=== PATIENT | female | born 1995 | race Hispanic/Latino ===

== ENCOUNTER 2016-10-29 07:48 | Inpatient (IN) | payer MEDICAID ==
[~2016-10-29] VITALS: Ht 154.9 cm; Wt 73.6 kg
[~2016-10-29 07:48] MED LIST: HYDR1TAB69 PO; MTF850T PO
[2016-10-29 07:51] VITALS: BP 103/71; PULSE 103; RESP 16; O2SAT 97
--- NOTE | 2016-10-29 08:09 | ED.REPORT ---
HPI-General Illness Date of Service Oct 29, 2016 ED Provider: Narinder Altamirano MD This is a 21-year-old female with history of diabetes who presents to the emergency department for vaginal pain. This is been going on for last week. Patient mentions she first started noticing burning with urination, frequency and urgency and a constant burning vaginal pain. She said that slowly progressively getting worse with pain radiating up into her pelvis and back. Her back pain she describes as an ache only 8 out of 10. She says lying still with her pain. Movement exacerbates her pain. She denies any previous symptoms. She did go to [facility] on 10/25/2016 for this and was given ciprofloxacin which she is supposed to finish tomorrow. She reports dysuria, urinary frequency and urgency which have not improved with ciprofloxacin. She denies any vaginal discharge or pain with sex. He denies any history of STDs. She reportedly is in a monogamous relationship. Last menstrual period was one week prior with 3 days of spotting. She denies any numbness, swelling or incontinence. Nursing Notes Stated Complaint: ABDOMINAL PAIN Chief Complaint: Female Abdominal Pain Nursing Notes Reviewed: Yes Allergies: Coded Allergies: Iodinated Contrast- Oral and IV Dye (Unverified Allergy, Mild, Rash, Itching,, 10/29/16) patient had itching in eyes and throat post contrast injection.given meds thru er. ll 10/29/ Scheduled Ciprofloxacin (Cipro) 500 Mg Tablet 500 MG PO BID x 7 days Metformin (Glucophage) 1,000 Mg Tablet 1,000 MG PO occasionally General Time Seen by MD: 07:59 Chief Complaint Other (vaginal pain) Hx Obtained From: Patient Past Medical History Past Medical History Type 1 diabetes, on insulin. . Past Surgical History Reports: , Cholecystectomy Family History Noncontributory Smoking History Never Smoker Social History Alcohol Use: Denies alcohol use Drug Use: Denies drug use Other Social History: Local resident Ambulatory Status Independent Review of Systems Full Review of Systems Constitutional: Reports: Chills, Denies: Fever Eyes: Denies: Blurred bilateral, Diplopia Ears / Nose / Throat: Denies: Sore throat Respiratory: Denies: Shortness of breath Cardiovascular: Denies: Chest pain GI: Reports: Nausea, Denies: Abdominal pain, Diarrhea, Vomiting Female: Reports: Dysuria, Pelvic pain, Urinary frequency, Urinary urgency, Denies: Incontinence, Vaginal discharge Musculoskeletal: Reports: Back pain Hematologic: Denies Bleeding Endocrine: Denies: Polyuria Skin: Denies Rash Allergy / Immune: Denies: Itching Neurologic: Denies: Numbness Psychiatric: Denies: Change mental status Complete sys rev & neg: except as marked. Physical Exam Vital Signs Vital Signs Date Time Temp Pulse Resp B/P Pulse Ox O2 Delivery O2 Flow Rate FiO2 10/29/16 15:21 37.4 84 16 99/67 98 Room Air 10/29/16 07:51 37.2 103 16 103/71 97 Initial VS: Reviewed General/Constitutional: Well-developed, Well-nourished Head / Eyes: Atraumatic, Normocephalic ENT: Mucous membranes moist, Conjunctiva normal Neck: Supple, Full range of motion Respiratory: Breath sounds normal, Clear to auscultation, No respiratory distress Cardiovascular: Regular rate & rhythm, Heart sounds normal, Intact distal pulses Abdomen / GI: Soft, Non-tender, No guarding, No rebound, No distention Extremities: Vascular intact, Neuro intact, No swelling Skin: Warm, Dry Neurologic: Alert, Oriented, Nonfocal Psychiatric: Mood/affect normal, Behavior normal, Normal thought content Tenderness/Guarding/Rebound: Positive: Tender RUQ... (Mild) Negative Shin's sign Back: Atraumatic, Inspection NL, No midline vertebral tend, No paraspinal tenderness Left sided CVA tenderness Female Genitourinary: Public Accountant present, External genitalia NL, No bleeding Attempted pelvic exam, external genitalia normal without any lesions. Upon speculum insertion, patient had significant tenderness and requested to stop insertion. Bimanual examination attempted with large golf ball sized lesion protruding from anterior vaginal wall, hard and unmovable. Was unable to assess for cervical motion tenderness. Interpretation & Diagnostics Abdominal Ultrasound FINDINGS: Liver: Liver is normal in size and increased in echogenicity. Gallbladder: Surgically absent. Biliary ducts: Intrahepatic bile ducts are non-dilated. Extrahepatic bile duct caliber measures 3 mm. Normal is 6-7 mm or less in diameter, or 10 mm or less post-cholecystectomy. Pancreas: Not well-seen. Spleen: Spleen is normal in size and homogeneous in echotexture. Kidneys: Right kidney measures 12.5 cm long; left kidney measures 12.8 cm long. No hydronephrosis. Aorta: Visualized aorta is normal in caliber at less than 3 cm. Iliacs: Proximal common iliac arteries are normal in caliber at less than 2.5 cm. IVC: Intrahepatic inferior vena cava is patent. Miscellaneous: No free abdominal fluid. IMPRESSION: 1. Surgical absence of the gallbladder. No biliary ductal dilatation. 2. Increased hepatic echogenicity compatible with steatosis. Dictated by: Thien Diehl M.D. on 10/29/2016 at 13:16 Lab Results Interpretation Result Diagram: 10/29/16 0940 10/29/16 0940 Test 10/29/16 08:00 10/29/16 09:40 Urine Color Yellow (YELLOW) Urine Appearance Hazy (CLEAR,HAZY) Urine pH 6.0 (5.0-8.0) Urine Specific [place] 1.045 (1.003-1.035) Urine Protein Negativemg/dL (NEG,TRACE) Urine Glucose (UA) 500mg/dL (NEGATIVE) Urine Ketones 80mg/dL (NEGATIVE) Urine Occult Blood Negative (NEGATIVE) Urine Nitrite Negative (NEGATIVE) Urine Bilirubin Negative (NEGATIVE) Urine Urobilinogen Normalmg/dL (NORMAL) Urine Leukocyte Esterase Moderate (NEGATIVE) Urine RBC 0-2/hpf (0-2) Urine WBC >50/hpf (0-5) Urine Epithelial Cells Few/hpf (NONE-MOD) Urine Crystals None seen (NONE SEEN) Urine Bacteria Few/hpf (NONE-FEW) Urine Hyaline Casts None/lpf (NONE) Urine Granular Casts None seen (NONE SEEN) Urine Waxy Casts None seen (NONE SEEN) Urine Red Blood Cell Casts None seen (NONE SEEN) Urine White Blood Cell Casts None seen (NONE SEEN) Urine Mucus None seen (None Seen) Urine Trichomonas None seen (NONE SEEN) Urine Yeast Moderate (NONE SEEN) Urinalysis Comment None Urine Culture Reflexed Indicated White Blood Count 14.0th/mm3 (3.8-10.1) Red Blood Count 4.79mil/mm3 (3.90-5.20) Hemoglobin 14.4g/dL (12.0-15.6) Hematocrit 41.0% (35.0-46.0) Mean Corpuscular Volume 85.6fL (81-100) Mean Corpuscular Hemoglobin 30.1pg (27.0-35.0) Mean Corpuscular Hemoglobin Concent 35.1% (32.0-37.0) Red Cell Distribution Width 11.5% (12.3-15.4) Platelet Count 244bil/L (150-400) Neutrophils (%) (Auto) 81.0% (40-74) Lymphocytes (%) (Auto) 12.8% (14-46) Monocytes (%) (Auto) 5.5% (4-12) Eosinophils (%) (Auto) 0.1% (0-5) Basophils (%) (Auto) 0.3% (0-3) Sodium Level 136mEq/L (134-144) Potassium Level 4.3mEq/L (3.5-5.2) Chloride Level 97mEq/L (97-108) Carbon Dioxide Level 23mmol/L (18-29) Blood Urea Nitrogen 10mg/dL (6-20) Creatinine 0.36mg/dL (0.57-1.00) Estimat Glomerular Filtration Rate 323mL/min (>59) Glucose Level 338mg/dL (60-99) Calcium Level 9.3mg/dL (8.5-10.1) Total Bilirubin 0.5mg/dL (0.0-1.2) Aspartate Amino Transf (AST/SGOT) 20U/L (0-50) Alanine Aminotransferase (ALT/SGPT) 28U/L (0-32) Alkaline Phosphatase 213U/L (25-150) Total Protein 8.1g/dL (6.4-8.4) Albumin 4.2g/dL (3.4-5.0) Lipase 31U/L (13-60) Hold Roper Top Tube Received (Received) CT Abd / Pelvis Interpretation IMPRESSION: 1. Thickwalled septated mass within the vagina was treated. Differential considerations include an abscess or infected Tanvi's duct cyst versus a necrotic neoplasm. Recommend correlation with clinical exam. 2. No evidence of metastatic disease in abdomen or pelvis. Dictated by: Thien Diehl M.D. on 10/29/2016 at 13:52 Interpretation / Wet Read by: Interpret - Radiologist US Focused non-OB Pelvis FINDINGS: Uterus: Uterus is normal in size at 8.3 x 3.2 x 4.2 cm. Endometrium measures 10 mm in combined thickness. There is a round hypoechoic vaginal mass in the region of the cervix measuring 4.8 x 4.5 x 4.7 cm with indistinct margins. There is internal vascularity on color Doppler interrogation. Ovaries: Right ovary measures 3.1 x 1.3 x 3.9 cm and the left ovary measures 2.7 x 2.1 x 1.3 cm. No adnexal masses. Other: No free pelvic fluid. IMPRESSION: 1. Hypoechoic solid vaginal mass in the region of the cervix. Finding is highly suspicious for neoplasm and correlation is recommended with direct visualization. If clinically indicated, further evaluation of the extent of involvement may be obtained with a pelvic MRI. Re-Eval/Medical Decision Med Decision/Clinical Course In summary, is a 21-year-old female with a PMHx notable for diabetes who presents to the ED for evaluation of vaginal pain radiating to pelvis and back associated with nausea over the past week. DDx broad and includes ectopic , ovarian torsion, ruptured ovarian cyst, PID, SBO, appendicitis, cholecystitis/biliary colic, pancreatitis, nephrolithiasis/renal colic, IBD, intraabdominal mass/abscess, gastroenteritis, diverticulitis, mesenteric ischemia, hernia. Upon arrival to the ED, patient hemodynamically stable, vitals grossly within normal limits. Initial workup and labs as per above, notable for WBC 14, glucose 338, alkaline phosphatase 213, UA with moderate leukocyte esterase and > 50 white blood cells, negative nitrite. Urine test negative. Patient had significant tenderness to speculum insertion and on bimanual exam, a golf ball sized mass was palpated along the anterior vaginal wall. Difficult to assess if it is urethral but it does not appear to be. Pelvic ultrasound shows 4.5 cm mass. JUDO INSTRUCTOR, Dr. Renae, consulted and evaluated the patient. Per her evaluation she feels that the mass may be more related to the urethra. She recommended pelvic CT for further workup and discussing with urology. CT abd/ pelvis demonstrates thickwalled septated mass within the vagina measuring approximately 4.4 x 4.2 x 4.9 cm with differential including abscess or infected tanvi duct cyst. After discussion with Dr. Renae, she still feels that this may be a urethral cause. She recommended consultation with urology to determine what their thought is on this. After discussion with Dr. Gastelum, he reviewed the CT scan of patient and did not feel there was any urethral involvement. He recommended following up with OBGYN. He also recommended doing a post-void residual to see if patient is able to empty. If > 300 mL, discuss with urology. Otherwise, he will see patient if not getting better from OBGYN recommendation in a few days. As we are uncertain whether or not this is an infectious process or necrotic neoplasm, plan is to admit with IV antibiotics. IV fluids, Zosyn and vancomycin given here in the ED. Patient will need an MRI for better characterization and consultation with JUDO INSTRUCTOR. Spoke with hospitalist who agreed to accept. All findings were discussed with patient and she is agreeable to the plan as stated, denies further questions. Consultation #1: Referral / Consult Name: Sujata Renae MD Consulted With: On-call physician (OBGYN) Note: Dr. Renae saw patient in the ER and recommended follow-up pelvic CT as she thought mass may be more urethral and not vaginal. After pelvic CT findings, she recommended admitting patient and following up with urology to see if it may be urethral. Consultation #2: Referral / Consult Name: Tuan Gastelum MD Consulted With: Urology Call Returned at: 15:20 Inserting Machine Operator: Referred to other consult Note: Dr. Gastelum reviewed the CT scan of patient and did not feel there was any urethral involvement. He recommended following up with OBGYN. He also recommended doing a post-void residual to see if patient is able to empty. If > 300 mL, discuss with urology. Otherwise, he will see patient if not getting better from OBGYN recommendation in a few days. Consultation #3: Referral / Consult Name: Sveta Gutierrez MD Consulted With: Hospitalist Inserting Machine Operator: Accepts admit Counseled Regarding: Diagnosis, Lab results, Need for admission Discharge & Departure Primary Impression: Vaginal mass Disposition: ADMITTED TO HOSPITAL Discharge Condition All VS Reviewed: Yes Condition: Stable Referrals: Etelvina Gordon MD (PCP) Attending Statement I saw and evaluated the patient in conjunction with the resident. I performed my own history and physical examination. I agree with the plan and findings as per above. copies to: Etelvina Gordon MD, William B MD Oct 29, 2016 08:09 Mohit Carpenter DO Oct 29, 2016 09:58
[2016-10-29 09:54] LABS: BASOPHILS % (AUTO) 0.3 % (0-3); EOSINOPHILS % (AUTO) 0.1 % (0-5); MONOCYTES % (AUTO) 5.5 % (4-12); Mean Corpuscular Hemoglobin 30.1 pg (27.0-35.0); Mean Corpuscular Volume 85.6 fL (81-100); Platelet Count 244 bil/L (150-400)
[2016-10-29] MEDS ORDERED: oxyCODONE-Acetamin 5-325 mg Tablet PO ONE (10:25)
[2016-10-29 10:32] LABS: APPEARANCE,URINE HAZY (CLEAR,HAZY); COLOR,URINE YELLOW (YELLOW)
[2016-10-29 10:33] LABS: OCCULT BLOOD,URINE NEGATIVE (NEGATIVE); UROBILINOGEN,URINE NORMAL (NORMAL); YEAST,URINE MODERATE (NONE SEEN)
--- NOTE | 2016-10-29 13:20 | DRSVH ---
PROCEDURE: US ABDOMEN ([id number]) INDICATIONS: RUQ PAIN TECHNIQUE: Real-time scanning was performed of the abdominal and retroperitoneal organs, with image documentatio n. COMPARISON: None. FINDINGS: Liver: Liver is normal in size and increased in echogenicity. Gallbladder: Surgically absent. Biliary ducts: Intrahepatic bile ducts are non-dilated. Extrahepatic bile duct caliber measures 3 m m. Normal is 6-7 mm or less in diameter, or 10 mm or less post-cholecystectomy. Pancreas: Not well-seen. Spleen: Spleen is normal in size and homogeneous in echotexture. Kidneys: Right kidney measures 12.5 cm long; left kidney measures 12.8 cm long. No hydronephrosis. Aorta: Visualized aorta is normal in caliber at less than 3 cm. Iliacs: Proximal common iliac arteries are normal in caliber at less than 2.5 cm. IVC: Intrahepatic inferior vena cava is patent. Miscellaneous: No free abdominal fluid. IMPRESSION: 1. Surgical absence of the gallbladder. No biliary ductal dilatation. 2. Increased hepatic echogenicity compatible with steatosis. Dictated by: Thien Diehl M.D. on 10/29/2016 at 13:16 Approved by: Thien Diehl M.D. on 10/29/2016 at 13:18
--- NOTE | 2016-10-29 13:39 | DRSVH ---
PROCEDURE: US PELVIC SONOGRAM INDICATIONS: vaginal and pelvic pain, vaginal mass, r/o TOA TECHNIQUE: Real-time transabdominal scanning was performed of the pelvic organs, with image documentation. COMPARISON: None. FINDINGS: Uterus: Uterus is normal in size at 8.3 x 3.2 x 4.2 cm. Endometrium measures 10 mm in combined thic kness. There is a round hypoechoic vaginal mass in the region of the cervix measuring 4.8 x 4.5 x 4. 7 cm with indistinct margins. There is internal vascularity on color Doppler interrogation. Ovaries: Right ovary measures 3.1 x 1.3 x 3.9 cm and the left ovary measures 2.7 x 2.1 x 1.3 cm. No adnexal masses. Other: No free pelvic fluid. IMPRESSION: 1. Hypoechoic solid vaginal mass in the region of the cervix. Finding is highly suspicious for neop lasm and correlation is recommended with direct visualization. If clinically indicated, further eval uation of the extent of involvement may be obtained with a pelvic MRI. Dictated by: Thien Diehl M.D. on 10/29/2016 at 13:35 Approved by: Thien Diehl M.D. on 10/29/2016 at 13:38
--- NOTE | 2016-10-29 14:02 | DRSVH ---
PROCEDURE: CT ABDOMEN AND PELVIS WITH CONTRAST ([id number]) INDICATIONS: 4.5 cm intravaginal mass TECHNIQUE: After the administration of oral and intravenous contrast, 5 mm thick sections acquired from the diap hragms to the symphysis. 5 mm thick coronal and sagittal reformats were performed. For radiation do se reduction, the following was used: automated exposure control, adjustment of mA and/or kV accordi ng to patient size. COMPARISON: None. FINDINGS: Image quality: Excellent. ABDOMEN: Lung bases: Lung bases are clear. Heart size is normal. Solid organs: There is mild fatty infiltration in the anterior left hepatic lobe. The spleen is norm al in size. Gallbladder is surgically absent. Biliary system is non-dilated. Pancreas enhances nor jackie. No adrenal nodules. Kidneys are normal in size and enhancement, without hydronephrosis. Peritoneum and bowel: Stomach, small bowel, and colon loops are normal in caliber and wall thickness . No free fluid or air. Nodes and vessels: No retroperitoneal or mesenteric adenopathy. Aorta and inferior vena cava are no rmal in caliber. Miscellaneous: No ventral hernias. PELVIS: Genitourinary: There is a thickwalled septated mass within the vagina measuring approximately 4.4 x 4.2 x 4.9 cm. There is enhancement of the wall and internal septations. No extra-vaginal extension. Bladder wall thickness is normal. Miscellaneous: No inguinal hernias or adenopathy. Bones: No suspicious bony lesions. No vertebral body compression fractures. IMPRESSION: 1. Thickwalled septated mass within the vagina was treated. Differential considerations include an abscess or infected Tanvi's duct cyst versus a necrotic neoplasm. Recommend correlation with clini kishore exam. 2. No evidence of metastatic disease in abdomen or pelvis. Dictated by: Thien Diehl M.D. on 10/29/2016 at 13:52 Approved by: Thien Diehl M.D. on 10/29/2016 at 14:01
[2016-10-29] MEDS ORDERED: Vancomycin Inj 1,000 MG in IV Premix 1 EACH IV ONE (15:00)
[2016-10-29] MEDS ORDERED: 0.9% Sodium Chloride 1,000 ML IV ONE (15:00)
[2016-10-29] MEDS ORDERED: Piperacillin-Tazo 3.375 Gm Inj 3.375 GM in Dextrose 5% Minibag Plus 50 ML IV ONE ×2 (15:00→17:35)
[2016-10-29 15:21] VITALS: BP 99/67; PULSE 84; RESP 16; O2SAT 98
[2016-10-29] MEDS ORDERED: CIPR-231 PO (15:59)
[2016-10-29] MEDS ORDERED: METF1000 PO (15:59)
[2016-10-29] MEDS ORDERED: Alum-Mag Hydrox-Simeth 30 mL Suspension PO PRN ×2 (16:00→17:10)
[2016-10-29] MEDS ORDERED: Ondansetron 2 mg/mL 2 mL Inj IVPUSH PRN ×2 (16:00→17:10)
[2016-10-29] MEDS ORDERED: Polyethylene Glycol (PEG) 17 Gm Powder PO PRN ×2 (16:00→17:10)
--- NOTE | 2016-10-29 16:05 | NUR ---
Admit Pt comes from ER with hansen in vaginal area. Worsens when sitting up. 2-3/10 when laying or standing. 8-10/10 when sitting or walking. IV Left AC patent. A&OX4, Denies CP, Nausea, SOB. at bedside. Care continues.
[2016-10-29 16:39] VITALS: BP 112/73; PULSE 92; RESP 18; O2SAT 97
[2016-10-29] MEDS: Vancomycin Dose per Pharmacist XX SCH (17:15)
[2016-10-29] MEDS ORDERED: Glucose 40% Oral Gel 15 Gm Tube PO PRN (17:15)
[2016-10-29] MEDS ORDERED: Dextrose 10% 250 ML IV PRN (17:20)
[2016-10-29] MEDS ORDERED: Vancomycin Inj 1,500 MG in 0.9% Sodium Chloride 500 ML IV ONE (17:25)
--- NOTE | 2016-10-29 17:29 | OUT PROG ---
[address] [address] PROGRESS NOTE PATIENT: SHRAVAN SANTIZO : 1995 MR#: [id number] ADMIT: 10/29/2016 JOB ID: [id number] DATE OF SERVICE: 10/29/2016 HISTORY OF PRESENT ILLNESS: This 21-year-old patient came to emergency department for abdominal pain. I was consulted to see this patient. She is 21 years old. She is 3, para 3 with 3 C-sections. For the last one month, she started to have discomfort with having sex. The pain started with beginning of penetration. For the last one week it is more painful. She also feels urinary frequency, dysuria, back pain. There is no hematuria. She had an ED visit four days ago and was diagnosed with urinary tract infection and antibiotics started. Symptoms did not improve after antibiotics. She came in today. She was examined by ED physician and noticed there was a vaginal cyst about 3-4 cm and an ultrasound that was performed by verbal report with geotechnical engineering technician, there was soft tissue about 3-4 cm and no final report available at this time. ALLERGIES: She has no known drug allergies. PAST MEDICAL HISTORY: She has history of diabetes type 2 on metformin 500, but her diabetes now is well controlled, per patient. Declined other medical problems. PAST SURGICAL HISTORY: She had a x3. She had gallbladder removed. OB HISTORY: As mentioned above, she has had three C-sections. The last one was 2014. It was done at [facility] because of complications of uncontrolled diabetes. GYNECOLOGIC HISTORY: She is having Nexplanon for control. She does not have regular menstrual periods. She has irregular spotting. She does not remember if she had any vaginal examination after her last delivery. She cannot recall her last Pap smear. SOCIAL HISTORY: She declined smoking, alcohol or drug usage. PHYSICAL EXAMINATION: Her temperature 37.2, her pulse is 103, respiratory rate 16, blood pressure 103/71 and her O2 sat 97. Abdomen is soft, nontender. No guarding. No rebound. Extremities nontender. No CVA tenderness bilaterally. Pelvic examination: Vulva: No abnormal findings. Vagina: With insertion of the speculum, the patient did feel very painful. There was about 2-3 cc of watery yellowish discharge noted. Culture was taken, and I could see the cervix but inserting more of the speculum caused a lot of pain. Speculum removed and a digital examination was done. There is a mass above her anterior vaginal wall. Her vaginal wall mucosa was smooth with no lesions. This mass about started from 1 cm above her introitus and it ended at about 1 cm to her cervix, but it is not related to the cervix. Bilaterally it is occupying about the whole width of her anterior vaginal wall. There is no clear border though. It is still soft but with tension, and was tender by pressing on it. When pressing on the anterior vaginal wall, the patient feels abdominal pain. There is no significant CMT. Posterior vaginal wall: No abnormal finding. Left or right side of vaginal wall: No abnormal findings. ASSESSMENT AND PLAN: A 21-year-old female, 3, para 3. Abdominal pain with superior to vaginal mass. At this time, I am not certain about the region but highly suspicious of coming from her lower urinary tract either bladder or urethral. I discussed with Dr. Hernandez in the ED, recommending a CT scan which may tell us the region from the cyst better. I will follow up the imaging, too. Based on her tender pain and also elevated white count, recommended also start her on broad coverage antibiotic, too.
[2016-10-29] MEDS: Insulin LISPRO 300 Unit/3 mL Inj SUBQ SCH ×2 (17:30→22:21)
--- NOTE | 2016-10-29 18:03 | HP ---
[address] [address] HISTORY AND PHYSICAL PATIENT: SHRAVAN SANTIZO : 1995 MR#: [id number] ADMIT: 10/29/2016 JOB ID: [id number] PRIMARY CARE PROVIDERS: Etelvina Gordon MD Patient admitted from ED, inpatient status [place] team. CHIEF COMPLAINT: Dysuria, frequency and vaginal pain. HISTORY OF PRESENT ILLNESS: This is a 21-year-old female who has been sick for a week. She describes dysuria and frequency. She has also had a discomfort there, and some discomfort in the vaginal area. She has had some chills, but no fever and the dysuria, frequency and pain has gotten progressively worse over the week. She has not had this before. She had a little vaginal spotting but not lakhwinder bleeding a couple of days ago that resolved after two or three days. That was a bit unusual and before her scheduled next menstruation. There has been no weight loss. The patient has noted a little bit of nausea, headache and cough but no other problems noted. REVIEW OF SYSTEMS: Complete review of systems obtained. All pertinent positive as per HPI above, rest of review of systems is negative. PAST MEDICAL HISTORY: 1. Type 2 diabetes. 2. Cholecystectomy. 3. . MEDICATIONS: Metformin 500 mg daily. ALLERGIES: Patient develops itching with the IODINATED CONTRAST for CT today. SOCIAL HISTORY: Lives with her . Does not smoke. Consumes no alcohol. No drug use. FAMILY HISTORY: Father of liver cancer at age 39. Mother has diabetes but no cancer. PHYSICAL EXAMINATION: Afebrile, pulse 84, respiratory rate 16, blood pressure 103/71, O2 sats 98% on room air. The patient does not appear overly uncomfortable. Skin is warm and dry. Eyes: PERRLA. EOMs intact. Mouth shows adequate hydration. Neck is supple. No JVD. Cardiac is regular. No murmur. Lungs: Clear to auscultation and percussion. Abdomen: Does have a little bit of suprapubic discomfort just to the left of midline, but otherwise her abdomen is soft, nonacute, benign. No mass is noted. Extremities showed no edema. Cranial nerves 2-12 are intact. No gross motor or sensory defects noted. ANALYSIS AND PLAN: 1. Vaginal mass, present on admission, active. CT ultrasounds indicate a vaginal mass. I have talked to Dr. Sujata Renae to coordinate admission. The differential would include infection versus a malignancy, versus abscess. I have personally spoken with our lockstitch collar setter, Dr. Renae, by phone. She has already seen the patient in the ED, done a complete FURNACE BRAZER exam and I do notice that chlamydia and gonorrhea cultures are pending. At this time, will start vancomycin and Zosyn. Will get two blood cultures with Procalcitonin prior. Will also get a lactate and ESR. We will put in for an MRI scan and will put in for a F[employer]NA[employer] BRAZER consult. They have also asked that Urology see the patient, so I have paged Dr. Gastelum and will request a urology consult at this time. Will also get a chest x-ray. 2. Urinary tract infection, present on admission, active. Patient's UA suggestive of a UTI and she has symptoms. The patient will be on Zosyn and Vanco. Will treat with that at this time and await the results of her cultures and sensitivities. 3. Type 2 diabetes, present on admission, active. Blood sugar is 338. The patient does not do home testing so does not know what her sugar is. At this time, will hold metformin and start the patient on correction insulin, and teach her how to use insulin as she may need this when she goes home short-term until we can get her on better diabetic management. Hemoglobin A1c ordered also. Patient is admitted under inpatient status with expected length of stay greater than two midnight due to severity of presenting symptoms, lack of risk of adverse advance and complexity of treatment.
[2016-10-29 18:23] VITALS: PULSE 107
--- NOTE | 2016-10-29 18:39 | NUR ---
Reaction to Zosyn Pt states that after the Zosyn was started her face began to itch and she now has welts. Face only at this time. Will page . Addendum: 10/29/16 at 1905 by RAFAEL REYNAGA RN Per give Benadryl and wait at least a half hr to ensure reaction stops.
[2016-10-29] MEDS ORDERED: diphenhydrAMINE 50 mg Capsule PO PRN (18:50)
[2016-10-29 20:00] VITALS: PULSE 104
--- NOTE | 2016-10-29 20:24 | PCM.PHAPRO ---
Progress Date of Service: Oct 29, 2016 Vancomycin Management per Pharmacy: Indication: Possible vaginal abscess vs mass Goal Trough: 10-15 mg/dL Age: 21 yo F Labs: WBC: 14 Procalcitonin: 0.03 ESR: 65 SrCr: 0.36 mg/dL Est CrCl: >120 mL/min Additional Abx: Rocephin/Flagyl Nephrotoxic Risk Factors: Diabetes, hemoglobin A1c pending Recommendation: Load: Vancomycin 1500 mg IV x 1 (~20 mg/kg) Maintenance: Vancomycin 1000 mg IV Q8h (~14 mg/k) Vanco Trough: Draw on 10/31 @ 1100 Pharmacy to continue to monitor and adjust dose as needed. Thank You, Melina Garcia, Pharm D. Melina Garcia Oct 29, 2016 20:24
[2016-10-29 21:21] VITALS: BP 111/72; PULSE 101; RESP 16; O2SAT 95
--- NOTE | 2016-10-29 21:35 | DRSVH ---
PROCEDURE: X-RAY CHEST ONE VIEW, PORTABLE ([id number]) INDICATIONS: cough TECHNIQUE: One view of the chest was acquired. COMPARISON: [facility], , CHEST 1VW (PORTABLE), 10/06/2013, 6:33. FINDINGS: Surgical changes and devices: None. Lungs and pleura: No pleural effusions or pneumothorax. Lungs are clear. Mediastinum: Mediastinal contours appear normal. Heart size is normal. Bones and chest wall: No suspicious bony lesions. Overlying soft tissues appear unremarkable. IMPRESSION: 1. No acute cardiopulmonary disease. Dictated by: Thien Diehl M.D. on 10/29/2016 at 21:32 Approved by: Thien Diehl M.D. on 10/29/2016 at 21:33
[2016-10-29] MEDS ORDERED: Piperacillin-Tazo 3.375 Gm Inj 3.375 GM in Dextrose 5% Minibag Plus 50 ML IV SCH (22:00)
[2016-10-29] MEDS: cefTRIAXone Inj 2,000 MG in Dextrose 5% Minibag Plus 50 ML IV SCH (22:05)
[2016-10-29] MEDS: metroNIDAZOLE Inj 500 MG in IV Premix 1 EACH IV SCH (23:16)
[2016-10-30 00:43] VITALS: BP 101/66; PULSE 60; RESP 16; O2SAT 98
[2016-10-30] MEDS: Vancomycin 1 Gm/200 mL NS Premix IV SCH ×2 (04:14→13:03)
--- NOTE | 2016-10-30 05:01 | NUR ---
Itching Patient stated that itching subsided. Rash is no longer visible. Patient states she only has pain with activity. Patient A&OX3. vitals stable. Patient resting quietly in bed. Care continues.
[2016-10-30 05:56] VITALS: BP 116/70; PULSE 96; RESP 18; O2SAT 98
[2016-10-30] MEDS: HYDROcodone-APAP 5-325 mg Tablet PO PRN ×2 (05:59→20:46)
[2016-10-30 06:43] LABS: BASOPHILS % (AUTO) 0.2 % (0-3); EOSINOPHILS % (AUTO) 0.3 % (0-5); MONOCYTES % (AUTO) 7.7 % (4-12); Mean Corpuscular Hemoglobin 30.2 pg (27.0-35.0); Mean Corpuscular Volume 87.1 fL (81-100); NEUTROPHILS % (AUTO) 75.6 % (40-74); Platelet Count 223 bil/L (150-400)
--- NOTE | 2016-10-30 08:10 | PCM.PNMED ---
Subjective Date of Service Oct 30, 2016 Subjective This 21-year-old patient came to emergency department for abdominal pain. I was consulted to see this patient. She is 21 years old. She is 3, para 3 with 3 C-sections. For the last one month, she started to have discomfort with having sex. The pain started with beginning of penetration. For the last one week it is more painful. She also feels urinary frequency, dysuria, back pain. There is no hematuria. She had an ED visit four days ago and was diagnosed with urinary tract infection and antibiotics started. Symptoms did not improve after antibiotics. US showed a vaginal wall mass, CT scan with IV contrast confirmed presence of mass without connect to bladder wall or cervix. Today patient stated that her pain is under control, but has breakthrough pain when pushing to urinate and sitting up from bed. She denies vaginal bleeding, fever, chills, nausea, vomiting. PAST MEDICAL HISTORY: She has history of diabetes type 2 on metformin 500, but her diabetes now is well controlled, per patient. Declined other medical problems. PAST SURGICAL HISTORY: She had a x3. She had gallbladder removed. OB HISTORY: As mentioned above, she has had three C-sections. The last one was 2014. It was done at [facility] because of complications of uncontrolled diabetes. GYNECOLOGIC HISTORY: She is having Nexplanon for control. She does not have regular menstrual periods. She has irregular spotting. She does not remember if she had any vaginal examination after her last delivery. She cannot recall her last Pap smear. SOCIAL HISTORY: She declined smoking, alcohol or drug usage. Exam Vital Signs Vital Sign - Last Date Time Temp Pulse Resp B/P Pulse Ox O2 Delivery O2 Flow Rate FiO2 10/30/16 05:56 37.6 96 18 116/70 98 Room Air Intake and Output 10/29/16 10/29/16 10/30/16 Cumulative From/Thru 15:00 23:00 07:00 10/29/16 07:51 - 10/30/16 06:28 Intake Total 1351 ml 1351 ml Output Total 700 ml 700 ml Balance 651 ml 651 ml Intake Oral 350 ml 350 ml IV Total 1001 ml 1001 ml Output Urine Total 700 ml 700 ml Exam Gen: alert and oriented x 3, NAD, ambulating indecently HEENT: PERRLA, EMOI, no lymphadenopathy Resp: CTLA b/l, normal/equal air movement Cardio: RRR, +S1, +s2, no M/G/R Abdomen: soft non tender, normal bowel sounds, no rebound tenderness Neuro: II-XII grossly intact Lab and Diagnostics Laboratory Tests Test 10/29/16 09:40 10/30/16 05:40 White Blood Count 14.0th/mm3 (3.8-10.1) 14.5th/mm3 (3.8-10.1) Red Blood Count 4.79mil/mm3 (3.90-5.20) 4.41mil/mm3 (3.90-5.20) Hemoglobin 14.4g/dL (12.0-15.6) 13.3g/dL (12.0-15.6) Hematocrit 41.0% (35.0-46.0) 38.4% (35.0-46.0) Mean Corpuscular Volume 85.6fL (81-100) 87.1fL (81-100) Mean Corpuscular Hemoglobin 30.1pg (27.0-35.0) 30.2pg (27.0-35.0) Mean Corpuscular Hemoglobin Concent 35.1% (32.0-37.0) 34.6% (32.0-37.0) Red Cell Distribution Width 11.5% (12.3-15.4) 11.5% (12.3-15.4) Platelet Count 244bil/L (150-400) 223bil/L (150-400) Neutrophils (%) (Auto) 81.0% (40-74) 75.6% (40-74) Lymphocytes (%) (Auto) 12.8% (14-46) 15.9% (14-46) Monocytes (%) (Auto) 5.5% (4-12) 7.7% (4-12) Eosinophils (%) (Auto) 0.1% (0-5) 0.3% (0-5) Basophils (%) (Auto) 0.3% (0-3) 0.2% (0-3) Erythrocyte Sedimentation Rate 65mm/hr (0-32) Sodium Level 136mEq/L (134-144) 136mEq/L (134-144) Potassium Level 4.3mEq/L (3.5-5.2) 4.2mEq/L (3.5-5.2) Chloride Level 97mEq/L (97-108) 99mEq/L (97-108) Carbon Dioxide Level 23mmol/L (18-29) 23mmol/L (18-29) Blood Urea Nitrogen 10mg/dL (6-20) 12mg/dL (6-20) Creatinine 0.36mg/dL (0.57-1.00) 0.37mg/dL (0.57-1.00) Estimat Glomerular Filtration Rate 323mL/min (>59) 313mL/min (>59) Glucose Level 338mg/dL (60-99) 267mg/dL (60-99) Lactic Acid Level 1.0mmol/L (0.4-2.0) Calcium Level 9.3mg/dL (8.5-10.1) 8.4mg/dL (8.5-10.1) Total Bilirubin 0.5mg/dL (0.0-1.2) Aspartate Amino Transf (AST/SGOT) 20U/L (0-50) Alanine Aminotransferase (ALT/SGPT) 28U/L (0-32) Alkaline Phosphatase 213U/L (25-150) Total Protein 8.1g/dL (6.4-8.4) Albumin 4.2g/dL (3.4-5.0) Lipase 31U/L (13-60) Procalcitonin 0.03ng/mL (0.00-0.08) Hold Roper Top Tube Received (Received) Microbiology 10/29/16 Blood Culture, Received Pending 10/29/16 Gram Stain, Resulted Pending 10/29/16 Genital Culture - Preliminary, Resulted LIGHT NORMAL EDMUND PRESENT 10/30/16 MRSA (PCR), Received Pending 10/29/16 Urine Culture - Preliminary, Resulted No growth to date Result Diagram: 10/30/16 0540 10/30/16 0540 Microbiology Urine culture negative growth to date X-Rays, CTs and MRIs Abdominal CT IMPRESSION: 1. Thickwalled septated mass within the vagina was treated. Differential considerations include an abscess or infected Tanvi's duct cyst versus a necrotic neoplasm. Recommend correlation with clinical exam. 2. No evidence of metastatic disease in abdomen or pelvis. Dictated by: Thien Diehl M.D. on 10/29/2016 at 13:52 Approved by: Thien Diehl M.D. on 10/29/2016 at 14:01 Pelvic U/S IMPRESSION: 1. Hypoechoic solid vaginal mass in the region of the cervix. Finding is highly suspicious for neoplasm and correlation is recommended with direct visualization. If clinically indicated, further evaluation of the extent of involvement may be obtained with a pelvic MRI. Dictated by: Thien Diehl M.D. on 10/29/2016 at 13:35 Approved by: Thien Diehl M.D. on 10/29/2016 at 13:38 Abdomen U/S IMPRESSION: 1. Surgical absence of the gallbladder. No biliary ductal dilatation. 2. Increased hepatic echogenicity compatible with steatosis. Dictated by: Thien Diehl M.D. on 10/29/2016 at 13:16 Approved by: Thien Diehl M.D. on 10/29/2016 at 13:18 Assessment & Plan ASSESSMENT Patient is a 21-year-old female, 3, para 3. Abdominal pain with superior to vaginal mass. Imaging is concerning for cystic lesion vs soft tissue neoplasm. At this time there is concern for origin of this soft tissue mass from the lower urinary tract. Agree with MRI to better define origin of mass If surgical intervention is warranted, consider referral to uro-nurse obgyn Recommend consult urology Addendum Review of MRI differential necrotic Tanvi's cyst, abscess, neoplasm with necrotic center. Given patient's age, pyuria, loculations seen on MRI more likley to be infective process rather than neoplasm. We will follow closely and see if there is clinical improvement with change in antibiotics to better cover anaerobes. If there is no clinical improvement, consider biopsy of lesion. We will follow closely. Thank you for allowing us to participate in this unfortunate young woman's care. Pain Evaluation: Adequate Pain Control VTE Mechanical Devices: Intermittant Pneumatic CD Resuscitation Status: CPR: Attempt Resuscitation Time spent 25 min Attending Statement The patient was seen and examined together with Dr. Oli Perez on 10/30/2016 and I agree with the history, exam and plan as outlined in the note above. OLI PEREZ DO Oct 30, 2016 08:10 Radha Ceballos DO Oct 30, 2016 21:54 Delma Brooks MD Nov 02, 2016 10:17
[2016-10-30] MEDS: Vancomycin Dose per Pharmacist XX SCH (08:30)
[2016-10-30 09:09] VITALS: PULSE 96
[2016-10-30] MEDS: Insulin LISPRO 300 Unit/3 mL Inj SUBQ SCH ×4 (10:04→22:30)
[2016-10-30] MEDS: metroNIDAZOLE Inj 500 MG in IV Premix 1 EACH IV SCH ×3 (10:04→22:15)
--- NOTE | 2016-10-30 10:51 | DRSVH ---
PROCEDURE: MRI PELVIS WITH AND WITHOUT CONTRAST ([id number]) INDICATIONS: Vaginal mass TECHNIQUE: Coronal HASTE, sagittal breath-hold T2 FSE; axial T1 FSE with and without fat saturation through the pelvis. Optional long- and short-axis uterine nonbreath-hold T2 FSE through the uterus. Sagittal or axial dynamic VIBE during administration of contrast. Post-contrast axial or coronal VIBE/2-D FLASH with fat saturation from the iliac crests to the symphysis. Optional diffusion weighted imaging and ADC may be performed. COMPARISON: Located Within [facility], US, US PELVIC, 10/29/2016, 11:10. Located Within [facility], CT, CT ABD PELVIS W CON, 10/29/2016, 13:06. FINDINGS: Image quality: Excellent. Uterus and vagina: Uterus is normal in size. Junctional zone is normal in thickness at 12 mm or les s. There is mild fluid distention of the endometrium with intrinsic T1 hyperintensity compatible wit h blood product. There is a thickwalled septated fluid collection or cystic mass redemonstrated within the vagina chauncey uring 3.9 x 4.8 cm in transverse dimension by 5.9 cm in craniocaudal dimension. There is enhancement of the gan and septations. There is no evidence of extravaginal extension. Adnexa: Both ovaries are normal in size, without suspicious cystic or solid lesions. There are smal l bilateral ovarian follicles noted. Urinary system: Bladder wall is normal in thickness. Distal ureters are non distended. Urethra raiza ears normal in morphology. Nodes and vessels: No pelvic or inguinal adenopathy by size criteria. Iliac vessels are normal in s ize. Bowel and peritoneum: No pathologic free pelvic fluid. Inferior colon and small bowel loops are nor mal in caliber. Soft tissues: No inguinal hernias. No findings of pelvic floor incompetence in the absence of provo cation. Bones: Marrow demonstrates normal overall signal. IMPRESSION: 1. Thickwalled septated cystic collection or mass redemonstrated within the vagina. The findings li grupo represents an abscess or infected Tanvi's duct cyst. The differential includes a cystic or ne crotic neoplasm. 2. No evidence of extravaginal extension or pelvic lymphadenopathy. 3. Mild fluid distention of the endometrium containing blood products likely related to patient's me nstrual cycle. Dictated by: Thien Diehl M.D. on 10/30/2016 at 10:38 Approved by: Thien Diehl M.D. on 10/30/2016 at 10:50
[2016-10-30 11:33] VITALS: BP 112/74; PULSE 92; RESP 16; O2SAT 98
--- NOTE | 2016-10-30 15:11 | CONS ---
[address] [address] CONSULTATION REPORT PATIENT: SHRAVAN SANTIZO : 1995 MR#: [id number] ADMIT: 10/29/2016 JOB ID: [id number] DATE OF SERVICE: 10/30/2016 INFECTIOUS DISEASE CONSULTATION: I thank Dr. Cristobal Gutierrez for this timely consult. REASON FOR CONSULTATION: Vaginal mass with pyuria in a young woman with known diabetes. HISTORY OF THE PRESENT ILLNESS: The patient is a 21-year-old woman who has had three sections over the past several years, the last one being a year and a half ago. She also has diabetes, which started off as just gestational diabetes and has now become a permanent problem, for which she is medically managed. The patient's relevant history begins when she developed urgency, frequency, dysuria, fevers, chills and dyspareunia. All of these symptoms are said to be new over the course of the past week and that she has no preceding history of any of these issues. Eventually, this led her to the emergency department yesterday, October 29, where she was admitted through the emergency department for this lower abdominal/vaginal or pelvic pain. The patient was initially evaluated by the ED doctors, as well as the hospitalist electronic prepress system operator and STEEL ROD BUSTER. The imaging today did show what appears to be a vaginal wall mass, which may be consistent with a Tanvi cyst or a possibly malignant mass. The has been started on broad-spectrum antibiotics including vancomycin, ceftriaxone and Flagyl, as she had earlier developed a possible reaction to Zosyn. At this point, the patient is relatively comfortable lying in bed, and awaiting additional details regarding her evaluation. The patient continues to have subjective fever and chills that are not documented in the computer. She is having no respiratory tract or GI symptomatology. She continues to experience suprapubic pain spontaneously and with palpation and also, continues with genitourinary symptoms. She also notes that she has a headache. PAST MEDICAL HISTORY: 1. Diabetes mellitus, apparently type 2. 2. History of cholecystitis, with cholecystectomy in the past. 3. Status post three sections. SOCIAL HISTORY: The patient was born in [facility] and moved to the [facility] at age [age]. She does not frequently travel back to [place] nor does she enjoy any imported cheeses or other foods from [place]. She is a nonsmoker, nondrinker. Lives at home with her and three kids in the [place] area. FAMILY HISTORY: Negative for tuberculosis in first and second-degree relatives. REVIEW OF SYSTEMS: Patient has some degree of headache. No acute visual change. No sore throat, cough, chest pain, shortness of breath, nausea, vomiting, or diarrhea. She does have dysuria, urgency and frequency as noted, as well as suprapubic pain and dyspareunia, all of which have been present for a week or so. No problems with the extremities. Remainder of the review of systems is negative. PHYSICAL EXAMINATION: Reveals an afebrile young woman in absolutely no distress. She has been afebrile since her admission here. Current temp 37.5, pulse 92, respiratory rate 16, blood pressure 112/74. She is saturating well on room air. Mental status is clear. Eyes without conjunctivitis. Oral cavity without thrush, pharyngitis, or hairy leukoplakia. Supple neck. Lungs clear. Cardiac tones: No murmur. Abdomen: Soft, nontender, except suprapubic tenderness, which is fairly pronounced as one approaches the symphysis pubis. No inguinal adenopathy is appreciated. No evidence of synovitis. No skin rash is noted. Patient is neurologically intact. She has a peripheral IV. I did not perform a pelvic exam, as numerous others have, and we are waiting additional input from SCOUT EXECUTIVE shortly, though we did review the notes from the gynecologic exam yesterday. LABORATORIES: Include white count consistently 14,000. Mild left shift is noted. Sed rate 65. Platelet count 223. Creatinine 0.37. Procalcitonin is negative, less than 0.05. Urinalysis had heavy pyuria, greater than 50 white cells, and the urine culture is pending. Serologic studies include pending gonorrhea and chlamydia studies. Blood cultures are negative but they are relatively new. The vaginal Gram stain shows a few polys and epithelial cells with many gram-negative rods which certainly could be entirely normal. MRSA PCR of the nares negative. IMAGING: Many imaging studies have been performed in the past 24 hours including pelvic ultrasound, abdominal ultrasound, abdominal CT and pelvic CT. The only normal study is the chest x-ray. The pelvic ultrasound shows a solid vaginal mass in the region of the cervix, suspicious for neoplasm according to the radiologist. An abdominal ultrasound shows no gallbladder and perhaps some fatty liver. Abdominal CT scan was done, shows a thick-walled, septated mass within the vagina. Could be an abscess, infected Tanvi cyst, or a neoplasm. Finally, a pelvic MRI was done which shows a thick-walled, septated cyst within the vagina. It could be an abscess, infected Tanvi cyst, or cancer. No evidence of adenopathy. IMPRESSION: This is an interesting case of a young woman who presents with considerable symptomatology that would be compatible with a straightforward urinary tract infection with her urgency, frequency, fever and chills. Urinalysis has heavy pyuria, and I think at least some part of what is going on here involves a urinary tract infection, likely a lower urinary tract infection. We are also left with the story with the symptom of dyspareunia and the imaging and examination which show a vaginal wall abnormality. I agree that the differential diagnosis here is primarily an infected Tanvi cyst versus malignancy and await additional information from the STEEL ROD BUSTER microsoft infrastructure consultant. Infected cyst would be expected to contain a mixture of aerobes and anaerobes, and I think ceftriaxone plus Flagyl she is receiving is adequate. Methicillin-resistant Staphylococcus aureus infection would be unlikely in this region, and we already have a negative methicillin-resistant Staphylococcus aureus screen. So, I think we could dispense with the vancomycin. RECOMMENDATIONS: 1. Will discontinue the vancomycin at this time. 2. Will proceed with ceftriaxone and Flagyl while we await the urine culture, as well as any additional information and/or cultures from STEEL ROD BUSTER. 3. Will continue to follow this case with you.
--- NOTE | 2016-10-30 15:26 | PCM.PNMED ---
Subjective Date of Service Oct 30, 2016 Subjective Still with pain and discomfort, maybe a little bit better. No fever, no new problems. I paged and reviewed this patient with the resident on CARD GRADER. They are considering some sort of possible biopsy. Exam Vital Signs Vital Sign - Last Date Time Temp Pulse Resp B/P Pulse Ox O2 Delivery O2 Flow Rate FiO2 10/30/16 11:33 37.5 92 16 112/74 98 Room Air Intake and Output 10/29/16 10/29/16 10/30/16 Cumulative From/Thru 15:00 23:00 07:00 10/29/16 07:51 - 10/30/16 06:28 Intake Total 1351 ml 1351 ml Output Total 700 ml 700 ml Balance 651 ml 651 ml Intake Oral 350 ml 350 ml IV Total 1001 ml 1001 ml Output Urine Total 700 ml 700 ml Exam Skin; warm and dry HENT; adequate hydration CV; reg possible 1/6 soft systolic murmur Resp; clear GI; soft non acute some tenderness hypogastric area, left midline a bit Lab and Diagnostics Result Diagram: 10/30/16 0540 10/30/16 0540 Microbiology Urine culture negative growth to date X-Rays, CTs and MRIs Abdominal CT IMPRESSION: 1. Thickwalled septated mass within the vagina was treated. Differential considerations include an abscess or infected Tanvi's duct cyst versus a necrotic neoplasm. Recommend correlation with clinical exam. 2. No evidence of metastatic disease in abdomen or pelvis. Dictated by: Thien Diehl M.D. on 10/29/2016 at 13:52 Approved by: Thien Diehl M.D. on 10/29/2016 at 14:01 Pelvic U/S IMPRESSION: 1. Hypoechoic solid vaginal mass in the region of the cervix. Finding is highly suspicious for neoplasm and correlation is recommended with direct visualization. If clinically indicated, further evaluation of the extent of involvement may be obtained with a pelvic MRI. Dictated by: Thien Diehl M.D. on 10/29/2016 at 13:35 Approved by: Thien Diehl M.D. on 10/29/2016 at 13:38 Abdomen U/S IMPRESSION: 1. Surgical absence of the gallbladder. No biliary ductal dilatation. 2. Increased hepatic echogenicity compatible with steatosis. Dictated by: Thien Diehl M.D. on 10/29/2016 at 13:16 Approved by: Thien Diehl M.D. on 10/29/2016 at 13:18 Assessment & Plan 1. Vaginal mass, present on admission, active. -differential, abscess, infected duct, cystic or necrotic neoplasm -MRI septated cystic collectio/mass within the vagina -cult many gram neg rods from vaginal culture -GC and clamydie cultures t/f -will continue with Flagyl/Ceftriaxone/vanco (day 2) consider ID consult if CARD GRADER thinks this is infections -possible biopsy -will follow with CARD GRADER -if CARD GRADER needs a Urology consult they will need to call and request, I asked urology (Dr. Gastelum) to consult and he declined, "not urologic, call me again if not better". 2. Urinary tract infection, present on admission, active. -c/o dysuria and frequency -antibiotics as above -culture negaive to date 3. Uncontrolled Type 2 diabetes, present on admission, active. -Blood sugar is 338 on admit -The patient does not do home testing so does not know what her sugar is. -holding patient's metformin -patient learning to use insulin -for today add lantus 10 HS, continue correction with med algorithm -close outpatient follow up VTE Mechanical Devices: Intermittant Pneumatic CD Sveta Gutierrez MD Oct 30, 2016 15:26
--- NOTE | 2016-10-30 17:03 | NUR ---
Social Work-initial assessment/multidisciplinary rounds: Data:See initial assessment. Pt is a 21 y/o female who was admitted on 10/29/16 for vaginal mass per H&P. Pt's insurance is self pay and PCP is Etelvina Gordon at [facility]. EMR Reviewed. Pt's readmission score is 2. SW met with pt and at bedside, SW role explained. Pt is alert and oriented x3. Pt resides at home with her and 3 children where she remains independent with ADLs. Pt drives and does not use any DME. Pt has no HH or SNF history. Pt has no skilled nursing care insurance or VA benefits. SW discussed DPOA/ advanced directive,pt declines any information. No concerns noted from RN or MD regarding pt's capacity for self care. [facility] referral has been made due to pt not having insurance. SW provided pt with [facility] care application as well. SW also provided pt with discharge planning checklist and encouraged pt to call with any questions, phone number provided on white board in room. Pt confirms her will provide transport home.ID MD continues to be involved in pt's case. No anticipated discharge needs. SW will continue to follow if needs arise. Assessment:Pt who is independent at baseline. Plan:Pt to discharge home when medically stable via POV. . No anticipated discharge needs. SW will continue to follow if needs arise. RONNIE Richmond Addendum: 10/30/16 at 1709 by FRANCY DASH SS Amended: Links added.
--- NOTE | 2016-10-30 17:54 | NUR ---
Pain Pain ranges from 2 while laying down at rest to 8-10 while ambulating to bathroom and voiding. Pt has declines pain medications most of day. Discussed more consistent pain medication such as Tylenol to help prevent such bad pain when ambulating and voiding. Pt states that she agrees and would like to receive her Tylenol as ordered to help prevent further pain. Care continues
[2016-10-30 20:45] VITALS: BP 113/71; PULSE 103; RESP 16; O2SAT 97
[2016-10-30] MEDS: cefTRIAXone Inj 2,000 MG in Dextrose 5% Minibag Plus 50 ML IV SCH (21:24)
[2016-10-31 01:10] VITALS: BP 99/64; PULSE 92; RESP 20; O2SAT 97
--- NOTE | 2016-10-31 01:11 | NUR ---
Pain Patient's pain has increased since the beginning of this shift. Taking Tylenol and 1 Percocet for pain. Patient's blood sugar remains high, 3 Units Lispro HS. Patient resting in bed. A&OX3. Vitals stable. Pain increases w/activity. Care continues.
[2016-10-31 05:30] VITALS: BP 99/63; PULSE 70; RESP 18; O2SAT 97
[2016-10-31] MEDS: metroNIDAZOLE Inj 500 MG in IV Premix 1 EACH IV SCH (08:13)
[2016-10-31] MEDS: Insulin LISPRO 300 Unit/3 mL Inj SUBQ SCH ×4 (08:13→23:30)
[2016-10-31 08:41] LABS: Mean Corpuscular Hemoglobin 30.1 pg (27.0-35.0); Mean Corpuscular Volume 85.9 fL (81-100)
--- NOTE | 2016-10-31 10:02 | PROG NOTE ---
[address] [address] PROGRESS NOTE PATIENT: SHRAVAN SANTIZO : 1995 MR#: [id number] ADMIT: 10/29/2016 JOB ID: [id number] DATE: 10/31/2016 REASON FOR FOLLOW UP: Vaginal mass with pyuria. INTERVAL HISTORY: Overnight, the patient reports no fevers, chills, or sweats. No cough. She still has some mild to moderate suprapubic pain. No nausea or vomiting. In speaking to the nurse, she reports that the PAINT BOOTH OPERATOR service was by today. They did a vaginal examination and compressed the vaginal wall mass and discovered that there was copious yellow material which then emerged from the urethra. This has led to the Urology consult which is currently pending. There is no note to reflect this and this is simply what we were told by the nurse. PHYSICAL EXAMINATION: Reveals an afebrile woman. Temp 36.2, pulse 70, respiratory rate 18, blood pressure 99/63. She is saturating well on room air. She is in no acute distress. Oral cavity negative. Lungs clear. Abdomen essentially benign, though there is tenderness in the suprapubic area as before. No skin rash. LABORATORIES: Include white count 11,000 today, down from 14 yesterday. Platelet count 221. Creatinine 0.37. Procalcitonin 0. Urinalysis, of course, had heavy pyuria, but the urine grew greater than three organisms including lactobacillus, coag-negative staph another unknown pathogens. Chlamydia and gonorrhea studies have come back negative. Blood cultures are negative. MRSA screen negative. IMAGING: We have no new imaging since the pelvic MRI we discussed in yesterday's consult. IMPRESSION: This is an unusual case of a woman who may have an infected Tanvi cyst, or perhaps a malignancy, though that seems less likely given the description of events this morning. One concern I would have is if compression of the vaginal mass causes urethral discharge, it would certainly raise a question about whether it could be a fistula or connection between these structures. RECOMMENDATIONS: 1. Will continue with ceftriaxone and Flagyl as broad-spectrum antibiotics for what could be an infected vaginal cyst and/or UTI. 2. We await additional input from PAINT BOOTH OPERATOR, as well as Urology consult.
[2016-10-31 10:07] VITALS: BP 104/68; PULSE 87; RESP 18; O2SAT 98
[2016-10-31] MEDS ORDERED: Vancomycin Serum Trough XX ONE (11:00)
[2016-10-31] MEDS: Insulin GLARgine 100 Unit/mL Syringe SUBQ SCH (12:22)
--- NOTE | 2016-10-31 13:27 | PROG NOTE ---
[address] [address] PROGRESS NOTE PATIENT: SHRAVAN SANTIZO : 1995 MR#: [id number] ADMIT: 10/29/2016 JOB ID: [id number] DATE: 10/31/2016 SUBJECTIVE: A 21-year-old female, 3, para three, history of three sections. Admitted for pelvic pain and finding of a mass between her vagina and her urethra and bladder. The patient was admitted for more further evaluation and also antibiotics were started two days ago with broad coverage. This morning I saw the patient at 7:50. The patient still feels pain in the pelvis and vaginal pain. She feels the pain is slightly better compared to two days ago when I saw her in the ED. PHYSICAL EXAMINATION: She has been afebrile; her temperature this morning 36.2. Pulse was 70, respiratory rate 18, blood pressure 99/63, O2 sat 97 at room air and her abdomen is soft, nontender, the same as my examination two days ago. Vulva: No abnormal finding. Her urethral opening slightly swollen. I discussed with the patient that I will try to do a digital vaginal examination and compare to my examination two days ago. The patient agreed for that. There was nurse in the room when I examined the patient. The feeling of the mass between her anterior vaginal wall and her urethra is bigger compared to two days ago, with higher tension. The patient feels very painful during examination. At the end of the examination I realized there was copious pus . Since this is a bedside examination, and is not a speculum examination, I could not be sure where the pus came from at this time. The vulvar area was cleaned with 4 x 4's and the patient was reexamined. With pushing on the mass there was clearly pus leaking out from her urethral opening. LABORATORY: Her H and H stable; today it is 13.2/37.7. White count has decreased compared to yesterday; it was 14.5 yesterday and this morning it is 11.5. Her neutrophil was not done today; it was 75.6 yesterday and was better compared to 81 the day before. Her chlamydia and gonorrhea are both negative. Her hemoglobin A1c 11.6, which was done two days ago. IMAGING: The patient has multiple imaging. The first one was an ultrasound which was done at the ED and a CT scan was done the same day and I recommended an MRI after admission. The MRI results report showed: 1. Thickened septated cystic collection or mass redemonstrated within the vagina. The findings likely represent an abscess or infected Tanvi's duct cyst. The differential includes a cystic or necrotic neoplasm. 2. No evidence of extravaginal extension of the pelvic lymphadenopathy. 3. Mild fluid distention of the endometrium containing blood products, likely related to the patient's menstrual cycle. I also revealed the imaging personally and correlated to my pelvic examination we still confirmed the mass between her vagina and her urethral area. There was no opening in her vagina. Again, this mass is smooth and is not related to the cervix. Compared to the examination two days ago, the mass is actually more closer to the vaginal opening, closer to the urethral opening. By reviewing the imaging I am more concerned about this mass which is more like an abscess and is around her urethra and may be related to the urethra. ASSESSMENT AND PLAN: A 21-year-old female, 3, para three, history of three sections, with pelvic pain and pelvic mass. Although the patient subjectively is feeling better and white count decreasing, on physical examination the mass is not decreasing and is slightly increased compared to a day ago. My concern at this time is that I could not exclude this mass is related to her urethra. If an incision and drainage (I and D) from her vaginal area, will increase the risk of forming a fistula which may not heal well with the infection. So at this time I have no plan to do any surgical management for this patient. I discussed with the internal medicine physician covering for this patient, Dr. Ceballos, this morning at 8:00. The plan is strongly recommended to get urology consult for this patient. If the patient is not improving, and after urology consult is still thinking it is not related to the urethra, this patient from my point of view will need referred down to [facility] for either urology care or gynecologic urologist care. REGINO
--- NOTE | 2016-10-31 15:59 | PCM.HPSURG ---
Subjective Date of Service: Oct 31, 2016 Referring Provider: Admitting Physician: Sveta Gutierrez MD Primary Care Physician: Etelvina Gordon MD Attending Physician: Sveta Gutierrez MD Chief Complaint Pain History of Present Illness Ms Lutz is a [address] findings consistent with pelvic abscess. She notes her problems began about a week ago, when she experienced pain deep within her pelvis. - Pain is worse with any movement like walking. Her pain is also severe with sitting. - Lying down, as she is presently, she has pain but not severe. She states her urine is clear. - She denies purulent urine, pneumaturia, or gross hematuria. - Ucx demonstrates MUG. She has had subjective fever before admission. Allergy Allergies: Coded Allergies: piperacillin (Verified Allergy, Severe, Itchy with welts on face , 10/29/16) tazobactam (Verified Allergy, Severe, Itchy with welts on face , 10/29/16) Iodinated Contrast- Oral and IV Dye (Unverified Allergy, Mild, Rash, Itching,, 10/29/16) patient had itching in eyes and throat post contrast injection.given meds thru er. ll 10/29/ Social History Hx Alcohol Use: No Hx Substance Use: No Hx Tobacco Use: No PMH HEENT History History of ENT Problems?: No Cardiovascular History History of Heart Problems?: No Cardiovascular History: Denies:: Congestive Heart Failure Hypertension Respiratory History of Respiratory Problem: No Respiratory History: Denies:: Tuberculosis Neurological History Hx Neurologic Problems?: No Gastrointestinal History HX of GI Problems?: No Female/Male History Reproductive History Female: Denies: Currently ? Endometriosis Pelvic Inflammatory DX Problems with Breasts? Musculoskeletal History Hx Musculoskeletal Problems?: No Psycho Social History Hx of Psycho/Social Problems?: No Other History Hx Any Other Health Problems?: Yes Other History: Positive for:: Hospitalization (c/s x 2) Diabetes: Yes (takes Metformin)Bedside Blood Glucose: 188 Social History Hx Alcohol Use: NoHx Substance Use: NoHx Tobacco Use: No Smoking Status: Never Smoker H&P Surgical Exam Exam General: Alert, Cooperative, No Acute Distress Abdomen: Benign, Soft, Other (Vaginal exam: she was extremely hesitant to allow me to examine her. She would not allow full vaginal exam, only visual examination. Her urethra is orthotopic and normal appearing. With Valsalva, she exhibited severe pain. The external genitalia appear normal, though she would not consent to further exam.) Extremities: Warm Neuro: Cranial Nerves 2-12 nl Catheters: None Assessment & Plan Assessment 21 F with pelvic pain and CT findings c/w abscess VTE Mechanical Devices: Intermittant Pneumatic CD Plan: I suspect she has a pelvic/vaginal abscess. I cannot examine her fully given her refusal. Based off imaging, this appears to be a gynecologic source, though Dr Renae notes there was purulence via urethra with exam. I recommend she have urgent drainage/decompression of this lesion, which could be transvaginal, even via simple incision, though the lesion is likely continuing to mature, and septations may make this difficult. I have discussed this with her primary team. Resuscitation Status: CPR: Attempt Resuscitation Anita Joyce MD Oct 31, 2016 15:59
[2016-10-31 16:18] VITALS: BP 91/64; PULSE 90; RESP 16; O2SAT 98
--- NOTE | 2016-10-31 19:36 | NUR ---
Fever/Activity Pt had elevated temp this PM and headache, Tylenol given and pt had relief. Pt was NPO for most of day for possible I&D, which didn't happen. Pt able to eat dinner. No N/V. Only having vaginal pain upon exam and with urination.
[2016-10-31] MEDS: cefTRIAXone Inj 2,000 MG in Dextrose 5% Minibag Plus 50 ML IV SCH (20:27)
[2016-10-31 20:58] VITALS: BP 109/69; PULSE 86; RESP 16; O2SAT 96
--- NOTE | 2016-10-31 22:01 | PCM.PNMED ---
Subjective Date of Service Oct 31, 2016 Subjective This is a 21F with a vaginal mass, currently on abx. She has a UTI with cx neg. Vaginal gramstain showed gram neg rods. Chlamydia, gonorrhea PCR pending. Urology does not feel this is urethral, CHEESE BLENDER feels there may be a fistula or communication between the vagina and urethra. Patient states that she is still experiencing pain, though it has been better than since admission time. She sees no need for a urine catheter at this time as she is able to urinate without much pain. She denies purulent discharge with urination. Denies overnight fever some chills. Says she wants to get this taken care of and go home Exam Vital Signs Vital Sign - Last Date Time Temp Pulse Resp B/P Pulse Ox O2 Delivery O2 Flow Rate FiO2 10/30/16 20:45 36.5 103 16 113/71 97 Room Air Intake and Output 10/29/16 10/29/16 10/30/16 Cumulative From/Thru 15:00 23:00 07:00 10/29/16 07:51 - 10/30/16 06:28 Intake Total 1351 ml 1351 ml Output Total 700 ml 700 ml Balance 651 ml 651 ml Intake Oral 350 ml 350 ml IV Total 1001 ml 1001 ml Output Urine Total 700 ml 700 ml Exam Vital signs temperature 36.2 pulse 70 respirations 18 blood pressure 90 minute or 63 pulse ox 97% on room air Skin; warm and dry HENT; adequate hydration CV; reg possible 1/6 soft systolic murmur Resp; clear no crackles or wheezes GI; soft, nontender Neuro: No focal deficits Psych: No agitation : External vagina is clean without purulent drainage, patient has some discomfort with examination, thus deferred internal examination IVs and Medications Medications Reviewed: Medications were reviewed in detail Lab and Diagnostics Laboratory Tests Test 10/31/16 08:35 10/31/16 10:15 White Blood Count 11.5th/mm3 (3.8-10.1) Red Blood Count 4.39mil/mm3 (3.90-5.20) Hemoglobin 13.2g/dL (12.0-15.6) Hematocrit 37.7% (35.0-46.0) Mean Corpuscular Volume 85.9fL (81-100) Mean Corpuscular Hemoglobin 30.1pg (27.0-35.0) Mean Corpuscular Hemoglobin Concent 35.0% (32.0-37.0) Red Cell Distribution Width 11.4% (12.3-15.4) Platelet Count 221bil/L (150-400) Sodium Level 137mEq/L (134-144) Potassium Level 4.4mEq/L (3.5-5.2) Chloride Level 99mEq/L (97-108) Carbon Dioxide Level 24mmol/L (18-29) Blood Urea Nitrogen 9mg/dL (6-20) Creatinine 0.37mg/dL (0.57-1.00) Estimat Glomerular Filtration Rate 313mL/min (>59) Glucose Level 273mg/dL (60-99) Calcium Level 8.4mg/dL (8.5-10.1) Vancomycin Level Trough 2.3mcg/mL Microbiology 10/29/16 Blood Culture - Preliminary, Resulted No growth at 2 days; culture examined... 10/29/16 Gram Stain - Final, Resulted 10/29/16 Genital Culture - Preliminary, Resulted 10/30/16 MRSA (PCR) - Final, Complete 10/29/16 Urine Culture - Final, Complete Mixed Urogenital Jesusita Result Diagram: 10/30/16 0540 10/30/16 0540 Microbiology Urine culture negative growth to date X-Rays, CTs and MRIs Abdominal CT IMPRESSION: 1. Thickwalled septated mass within the vagina was treated. Differential considerations include an abscess or infected Tanvi's duct cyst versus a necrotic neoplasm. Recommend correlation with clinical exam. 2. No evidence of metastatic disease in abdomen or pelvis. Dictated by: Thien Diehl M.D. on 10/29/2016 at 13:52 Approved by: Thien Diehl M.D. on 10/29/2016 at 14:01 Pelvic U/S IMPRESSION: 1. Hypoechoic solid vaginal mass in the region of the cervix. Finding is highly suspicious for neoplasm and correlation is recommended with direct visualization. If clinically indicated, further evaluation of the extent of involvement may be obtained with a pelvic MRI. Dictated by: Thien Diehl M.D. on 10/29/2016 at 13:35 Approved by: Thien Diehl M.D. on 10/29/2016 at 13:38 Abdomen U/S IMPRESSION: 1. Surgical absence of the gallbladder. No biliary ductal dilatation. 2. Increased hepatic echogenicity compatible with steatosis. Dictated by: Thien Diehl M.D. on 10/29/2016 at 13:16 Approved by: Thien Diehl M.D. on 10/29/2016 at 13:18 Assessment & Plan Vaginal mass, present on admission, active. -differential, abscess, infected duct, cystic or necrotic neoplasm -MRI septated cystic collection/mass within the vagina: "Thickwalled septated cystic collection or mass redemonstrated within the vagina. The findings likely represents an abscess or infected Tanvi's duct cyst. The differential includes a cystic or necrotic neoplasm." -cult grew many gram neg rods from vaginal culture -GC and clamydie cultures are negative -will continue with Flagyl/Ceftriaxone (day 2) consider ID consult if CHEESE BLENDER thinks this is infections, i.d. have discontinued the vancomycin -Improving leukocytosis -Per Dr. Mendoza's notes:"if CHEESE BLENDER needs a Urology consult they will need to call and request, I asked urology (Dr. Gastelum) to consult and he declined, "not urologic, call me again if not better". -Uptodate:"Cysts from Mllerian remnants, epidermal inclusions, or Tanvi's duct (wolffian remnant) usually form on the lateral or posterior vaginal gan [ 61,62]. A vaginal cyst may present in adolescence because of difficulty inserting a tampon or dyspareunia, but many are asymptomatic. Most can be treated by excision, although it may be safer to simply marsupialize deep cysts to avoid significant bleeding. -- I have discussed case extensively with this a.m. who seems to feel that it is too risky for her to to I&D the abscess as it may have a communication with the urethra. I have discussed this with DR. Shun rose from urology, who has reviewed the scans and seen the patient on 10/31. She feels that this is a gynecological problem that should be addressed by CHEESE BLENDER. She also advise that we discuss case with interventional radiology. I have contacted Dr. Mason over phone, who once again reviewed the images with me and recommended patient be taken to the OR by CHEESE BLENDER for incision and drainage. After discussing the case with Dr. Renae, in the evening once again, I have contacted [facility] regarding a possible transfer. Dr. Hendricks [employer] hospitalist has discussed the case with me, as well as Dr. Renae. Dr. Hendricks discussed case with uro goodwill representative Dr. Jose Manuel Warner, who felt that this could be watched with antibiotics. Dr. Hendricks al discussed case. with their CHEESE BLENDER/ONC. I got Dr. Hendricks in touch with Dr. Renae, as Dr. Renae strongly felt that the size of the mass has been increasing and it is not getting better. Dr. Hendricks is opent o possible transfer in the am if mass does not improve. Note that all images were pushed to Dr. Hendricks. From uptodate: "Anterior wall masses may be vaginal wall cysts, but urethral diverticula are more common at this location. Other disorders that should be considered are leiomyoma, ectopic ureter, and vaginal cancer [63]. In rare cases , a Tanvi's duct cyst may communicate with an ectopic ureter [64]. For this reason, imaging of the urinary tract is indicated prior to excision of a vaginal wall mass in a patient with congenital urinary tract anomalies or unexplained leakage of urine. (See "Urogenital tract fistulas in women".)" Urinary tract infection, present on admission, active. -c/o dysuria and frequency -antibiotics as above -culture negaive to date Type 2 diabetes, uncontrolled chronic, active. -Blood sugar is 338 on admit -holding patient's metformin -patient learning to use insulin -add lantus 10 daily, continue correction with med algorithm, will need more lantus --A1c 11.7 -close outpatient follow up VTE Mechanical Devices: Intermittant Pneumatic CD Pain Evaluation: Adequate Pain Control VTE Mechanical Devices: Intermittant Pneumatic CD Resuscitation Status: CPR: Attempt Resuscitation Time spent 25 min Radha Ceballos DO Oct 30, 2016 21:51
[2016-10-31] MEDS: HYDROcodone-APAP 5-325 mg Tablet PO PRN (23:30)
[2016-11-01] MEDS: diphenhydrAMINE 25 mg Capsule PO PRN (03:41)
[2016-11-01 04:00] VITALS: BP 104/65; PULSE 76; RESP 16; O2SAT 97
--- NOTE | 2016-11-01 04:08 | NUR ---
Pain/Activity Pt had c/o pain/cramping to vaginal area once this shift of 7 out of 10. Administered 1 tab PO [place] which pt states helped alleviate the cramping. Pt also had c/o itching to upper chest/neck area. This is ongoing and had previously yesterday. Pt requested PO Benadryl and appears to be resting comfortably in bed at this time. Pt ambulates to BR with SBA and tolerates very well, steady on feet. Remains afebrile this shift and has no c/o ongoing headache. I/O's remain above adequate at 0.45. Urology consult still pending for tomorrow.
[2016-11-01] MEDS: Insulin GLARgine 100 Unit/mL Syringe SUBQ SCH (09:19)
[2016-11-01] MEDS: Insulin LISPRO 300 Unit/3 mL Inj SUBQ SCH ×4 (09:20→21:50)
[2016-11-01 12:40] VITALS: BP 104/68; PULSE 80; RESP 16; O2SAT 97
[2016-11-01] MEDS ORDERED: Insulin GLARgine 100 Unit/mL Syringe SUBQ ONE (13:20)
--- NOTE | 2016-11-01 18:07 | PROG NOTE ---
[address] [address] PROGRESS NOTE PATIENT: SHRAVAN SANTIZO : 1995 MR#: [id number] ADMIT: 10/29/2016 JOB ID: [id number] DATE: 11/01/2016 INFECTIOUS DISEASE FOLLOWUP NOTE: REASON FOR FOLLOWUP: Posterior vaginal mass of unknown etiology. INTERVAL HISTORY: Both Urology and Gynecology have continued to evaluate this patient and there is some disagreement as to which if either of these specialties should perform invasive procedures to try and establish and/or treat this vaginal mass which may or may not connect to the urethra. Recall that during an exam however with palpation and squeezing of the vaginal mass yellow substance with seem to emerge from the urethra suggesting there is in fact some form of connection. The patient reports she is actually feeling better. No fevers, chills, sweats, cough, or overt GI symptoms. The very severe suprapubic pain which radiated to the back she had when she came in has largely improved. The patient is a bit frustrated by the slowness of her workup and states she plans to leave tomorrow unless there is a definitive plan to correct this problem. PHYSICAL EXAMINATION: Reveals an afebrile comfortable young woman. Temp 36.8, pulse 80, respiratory rate 16, blood pressure 104/68. She is saturating well on room air. She is in no acute distress. Oral cavity normal. Lungs clear. Abdomen now benign. The quite severe suprapubic tenderness she had on admission is gone at this point, and so overall I would think from a clinical point of view that she actually appears better. LABORATORY: Her white count has also normalized. It was 14,000 when she came in, now 9600. Creatinine 0.37. Procalcitonin zero. Chlamydia and gonorrhea PCR is negative. Blood cultures and MRSA screen negative. IMAGING: No new imaging has been done since the pelvic MRI two days ago. IMPRESSION: This patient likely has an abscess of the posterior vaginal wall and/or a malignancy. There may be some connection or fistulization with respect to the urethra. The appropriate management of this complex problem is best deferred to DOUGH MAKER and/or Urology, but I think in terms of antibiotic treatment she seems to be improving on ceftriaxone and Flagyl, which are aimed at possible untreated and undrained abscess. RECOMMENDATIONS: 1. Will continue with these antibiotics through tomorrow. 2. If the plan is to send the patient home tomorrow and then follow up in outpatient urogynecology clinic later, I think I would send her out on Augmentin or a combination of cefdinir and Flagyl as desired. 3. We will see this patient again tomorrow and hope for resolution of this problem. Thank you very much.
[2016-11-01 19:10] VITALS: BP 106/69; PULSE 85; RESP 16; O2SAT 96
[2016-11-01] MEDS: cefTRIAXone Inj 2,000 MG in Dextrose 5% Minibag Plus 50 ML IV SCH (20:03)
[2016-11-01] MEDS: HYDROcodone-APAP 5-325 mg Tablet PO PRN ×2 (20:12→21:38)
--- NOTE | 2016-11-01 21:39 | PCM.PNMED ---
Subjective Date of Service Nov 01, 2016 Subjective Patient is seen and examined. Rates pain as 4-10 today. She says that she is feeling slightly better, though the pain does come back with ambulation. I have reviewed the lab results, test results, and discussions with Dr. [facility] Ordoñez with the patient Exam Vital Signs Vital Sign - Last Date Time Temp Pulse Resp B/P Pulse Ox O2 Delivery O2 Flow Rate FiO2 11/01/16 12:40 36.8 80 16 104/68 97 Room Air Intake and Output 10/31/16 10/31/16 11/01/16 Cumulative From/Thru 15:00 23:00 07:00 10/29/16 07:51 - 11/01/16 05:31 Intake Total 920 ml 512 ml 786 ml 4967 ml Output Total 1350 ml 400 ml 800 ml 4450 ml Balance -430 ml 112 ml -14 ml 517 ml Intake Oral 920 ml 300 ml 640 ml 2970 ml IV Total 212 ml 146 ml 1997 ml Output Urine Total 1350 ml 400 ml 800 ml 4450 ml # Voids 3 3 # Bowel Movements 0 0 0 Exam Gen.: No acute distress laying in bed HEENT: Normocephalic, atraumatic Heart: Regular rate and rhythm, no S3-S4 sounds Lungs: no crackles or wheezes Abdomen soft, nontender nondistended, normal bowel sounds Psychiatric: Affect is neutral, mood is somewhat depressed Neurological: No focal deficits Skin: Warm dry IVs and Medications Medications Reviewed: Medications were reviewed in detail Lab and Diagnostics Result Diagram: 11/01/16 0455 10/31/16 0835 Microbiology Urine culture negative growth to date X-Rays, CTs and MRIs Abdominal CT IMPRESSION: 1. Thickwalled septated mass within the vagina was treated. Differential considerations include an abscess or infected Tanvi's duct cyst versus a necrotic neoplasm. Recommend correlation with clinical exam. 2. No evidence of metastatic disease in abdomen or pelvis. Dictated by: Thien Diehl M.D. on 10/29/2016 at 13:52 Approved by: Thien Diehl M.D. on 10/29/2016 at 14:01 Pelvic U/S IMPRESSION: 1. Hypoechoic solid vaginal mass in the region of the cervix. Finding is highly suspicious for neoplasm and correlation is recommended with direct visualization. If clinically indicated, further evaluation of the extent of involvement may be obtained with a pelvic MRI. Dictated by: Thien Diehl M.D. on 10/29/2016 at 13:35 Approved by: Thien Diehl M.D. on 10/29/2016 at 13:38 Abdomen U/S IMPRESSION: 1. Surgical absence of the gallbladder. No biliary ductal dilatation. 2. Increased hepatic echogenicity compatible with steatosis. Dictated by: Thien Diehl M.D. on 10/29/2016 at 13:16 Approved by: Thien Diehl M.D. on 10/29/2016 at 13:18 Assessment & Plan Vaginal mass, present on admission, active. -differential, abscess, infected duct, cystic or necrotic neoplasm -MRI septated cystic collection/mass within the vagina: "Thickwalled septated cystic collection or mass redemonstrated within the vagina. The findings likely represents an abscess or infected Tanvi's duct cyst. The differential includes a cystic or necrotic neoplasm." -cult grew many gram neg rods from vaginal culture -GC and clamydie cultures are negative -will continue with Flagyl/Ceftriaxone (day 2) consider ID consult if DECAL DECORATOR thinks this is infections, i.d. have discontinued the vancomycin -Per Dr. Mendoza's notes:"if DECAL DECORATOR needs a Urology consult they will need to call and request, I asked urology (Dr. Gastelum) to consult and he declined, "not urologic, call me again if not better". -Uptodate:"Cysts from Mllerian remnants, epidermal inclusions, or Tanvi's duct (wolffian remnant) usually form on the lateral or posterior vaginal gan [ 61,62]. A vaginal cyst may present in adolescence because of difficulty inserting a tampon or dyspareunia, but many are asymptomatic. Most can be treated by excision, although it may be safer to simply marsupialize deep cysts to avoid significant bleeding. --10/31/16 I have discussed case extensively with Dr.Liu sherrill barraza who seems to feel that it is too risky for her to to I&D the abscess as it may have a communication with the urethra. I have discussed this with DR. Shun rose from urology, who has reviewed the scans and seen the patient on 10/31. She feels that this is a gynecological problem that should be addressed by DECAL DECORATOR. She also advise that we discuss case with interventional radiology. I have contacted Dr. Mason over phone, who once again reviewed the images with me and recommended patient be taken to the OR by DECAL DECORATOR for incision and drainage. After discussing the case with Dr. Renae, in the evening once again, I have contacted [facility] regarding a possible transfer. Dr. Hendricks MAT MACHINE TENDER hospitalist has discussed the case with me, as well as Dr. Renae. Dr. Hendricks discussed case with uro nurse gynecology Dr. Jose Manuel Warner, who felt that this could be watched with antibiotics. Dr. Hendricks al discussed case. with their DECAL DECORATOR/ONC. I got Dr. Hendricks in touch with Dr. Renae, as Dr. Renae strongly felt that the size of the mass has been increasing and it is not getting better. Dr. Hendricks is opent o possible transfer in the am if mass does not improve. Note that all images were pushed to Dr. Hendricks. -- 11/[address] Zuñiga from DECAL DECORATOR to see him rounding given him the number for [facility] so he can be in touch with the MAT MACHINE TENDER hospitalist from [facility], he states that based on his discussion with Dr. RENAE he is still hoping to send the patient to [facility] -- From uptodate: "Anterior wall masses may be vaginal wall cysts, but urethral diverticula are more common at this location. Other disorders that should be considered are leiomyoma, ectopic ureter, and vaginal cancer [63]. In rare cases , a Tanvi's duct cyst may communicate with an ectopic ureter [64]. For this reason, imaging of the urinary tract is indicated prior to excision of a vaginal wall mass in a patient with congenital urinary tract anomalies or unexplained leakage of urine. (See "Urogenital tract fistulas in women".)" Urinary tract infection, present on admission, active. -c/o dysuria and frequency -antibiotics as above -culture negative to date -Continue antibiotics per Dr. Allred currently patient is only on Flagyl, ceftriaxone Type 2 diabetes, uncontrolled chronic, active. -Blood sugar is 338 on admit -holding patient's metformin -patient learning to use insulin -add lantus 15 daily, continue correction with med algorithm, will need more lantus --A1c 11.7 -close outpatient follow up Vaginal Pain, acute POA -- Cont pain meds VTE Mechanical Devices: Intermittant Pneumatic CD Pain Evaluation: Adequate Pain Control VTE Mechanical Devices: Intermittant Pneumatic CD Resuscitation Status: CPR: Attempt Resuscitation Time spent 25 minutes Radha Ceballos DO Nov 01, 2016 14:06
[2016-11-02] MEDS: diphenhydrAMINE 25 mg Capsule PO PRN (00:58)
[2016-11-02 01:01] VITALS: PULSE 79; RESP 18; O2SAT 97
[2016-11-02 02:07] VITALS: BP 100/63; PULSE 78; RESP 16; O2SAT 98
--- NOTE | 2016-11-02 03:14 | NUR ---
Blood sugar/Itching Pt 229 blood sugar was 305. HS blood sugar of 313, and 3 units Lispro was admin'd as ordered. VSS, night hospitalist notified, no new orders at this time. Will continue to monitor blood sugars. Pt also c/o itching and said when she dozes off she feels like she stops breathing and it wakes her. VSS, O2 98-99% on RA. R 18. PO Benadryl given, CPOX placed on pt to monitor O2 levels with sleep. Sats have remained 98%, pt appears to be sleeping comfortably in bed at this time. Addendum: 11/02/16 at 0327 by ITALIA TELLEZ RN Pt itching is to neck and upper chest. Skin appears normal in color, no red rash visible. There are a couple scratch hardwick visible to lateral neck and upper chest. Skin intact. NS running TKO for IV antibiotics. Rocephin was administered at 199911/01/16 and completed at 202911/01/16. [place] [address]/02/16.
[2016-11-02 05:15] VITALS: BP 102/59; PULSE 73; RESP 16; O2SAT 98
[2016-11-02] MEDS ORDERED: Insulin GLARgine 100 Unit/mL Syringe SUBQ SCH (08:30)
[2016-11-02] MEDS: Insulin LISPRO 300 Unit/3 mL Inj SUBQ SCH ×2 (08:33→12:59)
[2016-11-02 09:30] VITALS: BP 104/66; PULSE 77; RESP 18; O2SAT 98
[2016-11-02] MEDS ORDERED: Insulin LISPRO 300 Unit/3 mL Inj SUBQ SCH ×2 (11:30)
--- NOTE | 2016-11-02 11:51 | PROG NOTE ---
[address] [address] PROGRESS NOTE PATIENT: SHRAVAN SANTIZO : 1995 MR#: [id number] ADMIT: 10/29/2016 JOB ID: [id number] DATE: 11/02/2016 INFECTIOUS DISEASE FOLLOWUP NOTE: REASON FOR FOLLOWUP: Vaginal mass with possible connection to the urethra. INTERVAL HISTORY: Overnight, the patient has been free of fevers, chills, or sweats. Her suprapubic pain, which was so significant when she came in, is largely gone though there is still a bit of residual discomfort. No pulmonary or GI symptoms. PHYSICAL EXAMINATION: Reveals an afebrile woman. No acute distress. Pulse 77, respiratory rate 18, blood pressure 104/66. She is saturating well on room air and in no acute distress. Oral cavity, lungs, and abdomen benign. Mild suprapubic tenderness is present but improving day by day. White count yesterday was normal at 9600, not repeated today. Serologic studies include gonorrhea and chlamydia which are negative. Blood cultures are negative. MRSA screen negative. A culture obtained from the vagina on admission had a few polys and many gram-negative rods, but grew normal vaginal markell. IMAGING: Includes the pelvic MRI which was done now some three days ago which showed a thickened septated cystic fluid collection within the vagina thought to represent an infected Tanvi's duct cyst or a neoplasm. IMPRESSION: This patient seems to have been steadily improving on ceftriaxone and Flagyl, which would certainly suggest that we are treating some form of infection which is leading to improvement in her suprapubic pain as well as her white blood count. That said, we really do not know the nature of this infection other than we suspect it is an infected Tanvi cyst. The patient was born in [facility], raising the outside possibility that this could be a gynecologic tuberculosis, though I think that would be quite unlikely. RECOMMENDATIONS: 1. Will continue with ceftriaxone and Flagyl as long she is here in the hospital. 2. In view of her Zosyn-induced pruritus, if she goes home I would send her out on cefdinir 300 b.i.d. and Flagyl 500 b.i.d., both by the oral route, for about 10 more days of therapy. 3. I continue to believe that it is imperative that we get a sample of this vaginal septated mass and it should be sent, among other things, for routine as well as AFB and fungal cultures. 4. Will continue to follow this fascinating case with you.
--- NOTE | 2016-11-02 13:17 | PCM.PNMED ---
Subjective Date of Service Nov 02, 2016 Subjective Visit [facility] This 21-year-old patient came to emergency department for abdominal pain. I was consulted to see this patient. She is 21 years old. She is 3, para 3 with 3 C-sections. For the last one month, she started to have discomfort with having sex. The pain started with beginning of penetration. For the last one week it is more painful. She also feels urinary frequency, dysuria, back pain. There is no hematuria. She had an ED visit four days ago and was diagnosed with urinary tract infection and antibiotics started. Symptoms did not improve after antibiotics. US showed a vaginal wall mass, CT scan with IV contrast confirmed presence of mass without connect to bladder wall or cervix. Antibiotics changed per ID patient has had clinical improvement over the past 24 hours. Today patient stated that she is feeling better than days prior, pain has improved, with minor breakthrough pain. Patient denies fever, chills night sweats, nausea, vomiting, SOB, chest pain. ROS: otherwise negative except for mentioned in HPI PAST MEDICAL HISTORY: She has history of diabetes type 2 on metformin 500, but her diabetes now is well controlled, per patient. Denies other medical problems. PAST SURGICAL HISTORY: She had a x3. She had gallbladder removed. OB HISTORY: As mentioned above, she has had three C-sections. The last one was 2014. It was done at [facility] because of complications of uncontrolled diabetes. GYNECOLOGIC HISTORY: She is having Nexplanon for control. She does not have regular menstrual periods. She has irregular spotting. She does not remember if she had any vaginal examination after her last delivery. She cannot recall her last Pap smear. SOCIAL HISTORY: She declined smoking, alcohol or drug usage. Exam Vital Signs Vital Sign - Last Date Time Temp Pulse Resp B/P Pulse Ox O2 Delivery O2 Flow Rate FiO2 11/02/16 09:30 36.7 77 18 104/66 98 Room Air Intake and Output 11/01/16 11/01/16 11/02/16 Cumulative From/Thru 15:00 23:00 07:00 10/29/16 07:51 - 11/02/16 06:11 Intake Total 532 ml 1654 ml 7153 ml Output Total 600 ml 1250 ml 6300 ml Balance -68 ml 404 ml 853 ml Intake Oral 400 ml 1500 ml 4870 ml IV Total 132 ml 154 ml 2283 ml Output Urine Total 600 ml 1250 ml 6300 ml # Voids 3 # Bowel Movements 0 0 0 Exam Gen: alert and oriented x 3, NAD, ambulating indecently HEENT: PERRLA, EMOI, no lymphadenopathy Resp: CTLA b/l, normal/equal air movement Cardio: RRR, +S1, +s2, no M/G/R Abdomen: soft non tender, normal bowel sounds, no rebound tenderness Neuro: II-XII grossly intact Lab and Diagnostics Result Diagram: 11/01/16 0455 10/31/16 0835 Microbiology Urine culture negative growth to date X-Rays, CTs and MRIs Abdominal CT IMPRESSION: 1. Thickwalled septated mass within the vagina was treated. Differential considerations include an abscess or infected Tanvi's duct cyst versus a necrotic neoplasm. Recommend correlation with clinical exam. 2. No evidence of metastatic disease in abdomen or pelvis. Dictated by: Thien Diehl M.D. on 10/29/2016 at 13:52 Approved by: Thien Diehl M.D. on 10/29/2016 at 14:01 Pelvic U/S IMPRESSION: 1. Hypoechoic solid vaginal mass in the region of the cervix. Finding is highly suspicious for neoplasm and correlation is recommended with direct visualization. If clinically indicated, further evaluation of the extent of involvement may be obtained with a pelvic MRI. Dictated by: Thien Diehl M.D. on 10/29/2016 at 13:35 Approved by: Thien Diehl M.D. on 10/29/2016 at 13:38 Abdomen U/S IMPRESSION: 1. Surgical absence of the gallbladder. No biliary ductal dilatation. 2. Increased hepatic echogenicity compatible with steatosis. Dictated by: Thien Diehl M.D. on 10/29/2016 at 13:16 Approved by: Thien Diehl M.D. on 10/29/2016 at 13:18 Assessment & Plan A 21-year-old female, 3, para three, history of three sections , with pelvic pain and pelvic mass 3.9x4.8x5.9, there is still concern that urogenital fistula is not ruled out and doing an I&D at this facility without Uro/STUDENT FINANCE ADVISOR would not be in patient's best interest. Agree with antibiotics ciprofloxacin and Flagyl per ID Case discussed with primary team Dr. Radha Ceballos Recommend follow up with Uro/STUDENT FINANCE ADVISOR, this can be done on outpatient basis if patient is clinically stable, responding well to antibiotics, and pain improved Per ID convert antibiotics cefdinir 300 b.i.d. and Flagyl 500 b.i.d., both by the oral route, for about 10 more days of therapy at time of discharge Recommend that patient follow up with [facility] for follow up care as speciality Uro/STUDENT FINANCE ADVISOR available at that facility At this time we will sign off on the case but are available to re-evaluate patient should her condition change VTE Mechanical Devices: Intermittant Pneumatic CD Resuscitation Status: CPR: Attempt Resuscitation Attending Statement The patient was seen and examined together with Dr.Aaron Perez on 11/02/2016 and I agree with the history, exam and plan as outlined in the note above. IVÁN PEREZ DO Nov 02, 2016 13:17 Delma Brooks MD Nov 02, 2016 15:00 discussing the case with Dr. Renae, in the evening once again, I have contacted [facility] regarding a possible transfer. Dr. Hendricks DRAFTER GEOLOGICAL hospitalist has discussed the case with me, as well as Dr. Renae. Dr. Hendricks discussed case with uro soft hat binder Dr. Jose Manuel Warner, who felt that this could be watched with antibiotics. Dr. Hendricks al discussed case. with their STUDENT FINANCE ADVISOR/ONC. I got Dr. Hendricks in touch with Dr. Renae, as Dr. Renae strongly felt that the size of the mass has been increasing and it is not getting better. Dr. Hendricks is opent o possible transfer in the am if mass does not improve. Note that all images were pushed to Dr. Hendricks. -- 11/[address] Zuñiga from STUDENT FINANCE ADVISOR to see him rounding given him the number for [facility] so he can be in touch with the DRAFTER GEOLOGICAL hospitalist from [facility], he states that based on his discussion with Dr. RENAE he is still hoping to send the patient to [facility] -- From uptodate: "Anterior wall masses may be vaginal wall cysts, but urethral diverticula are more common at this location. Other disorders that should be considered are leiomyoma, ectopic ureter, and vaginal cancer [63]. In rare cases , a Tanvi's duct cyst may communicate with an ectopic ureter [64]. For this reason, imaging of the urinary tract is indicated prior to excision of a vaginal wall mass in a patient with congenital urinary tract anomalies or unexplained leakage of urine. (See "Urogenital tract fistulas in women".)" Urinary tract infection, present on admission, active. -c/o dysuria and frequency -antibiotics as above -culture negative to date -Continue antibiotics per Dr. Allred currently patient is only on Flagyl, ceftriaxone Type 2 diabetes, uncontrolled chronic, active. -Blood sugar is 338 on admit -holding patient's metformin -patient learning to use insulin -add lantus 15 daily, continue correction with med algorithm, will need more lantus --A1c 11.7 -close outpatient follow up Vaginal Pain, acute POA -- Cont pain meds VTE Mechanical Devices: Intermittant Pneumatic CD VTE Mechanical Devices: Intermittant Pneumatic CD Resuscitation Status: CPR: Attempt Resuscitation IVÁN PEREZ DO Nov 02, 2016 13:17
[2016-11-02 13:53] VITALS: BP 107/70; PULSE 80; RESP 18; O2SAT 99
[2016-11-02] MEDS ORDERED: METF1000 PO (14:24)
[2016-11-02] MEDS ORDERED: INSU100I13 SUBQ ×3 (14:27→15:40)
[2016-11-02] MEDS ORDERED: HYDR-4003 PO (14:28)
--- NOTE | 2016-11-02 14:30 | PCM.DIMED ---
Discharge Instructions Date of Service Nov 02, 2016 Dates of Hospitalization Oct 29, 2016 at 15:40 Discharge Diagnosis Discharge Diagnosis Vaginal Mass, Uncontrolled Diabetes Medication Instructions Additional med instructions Eat Yogurt to avoid diarrhea while you are on antibiotics. Always check BG prior to administering the lantus (BG has to be> 110) and also if you feel symptoms of low BG such as dizziness, weakness etc. Diet Discharge Diet: Diabetic Activity Discharge Activity: No restrictions Call your provider Call your provider for: Fever or Chills, Shortness of breath, Bleeding, Chest pain, Vomitting, Excessive diarrhea Patient Instructions Patient Instructions Please do not drive if you are taking narcotic pain medication as it will cause you drowsiness Please follow up with uro/film processor at [facility] in one week for vaginal mass Follow-up plan Please F/U with PCP in 5-7 days for diabetes Please follow up with [facility] Dr. Haider or one of his Urogyn Colleagues in one week at the [facility] TUBE CUTTER OPERATOR [phone] CBC, BMP prior to f/u with PCP in 5 days Radha Ceballos DO Nov 02, 2016 14:30
[2016-11-02] MEDS ORDERED: METR250T PO (14:34)
[2016-11-02] MEDS ORDERED: CEFD300C3 PO (14:34)
[2016-11-02] MEDS ORDERED: METR500T19 PO (14:37)
--- NOTE | 2016-11-02 15:34 | PCM.DC.MED ---
Discharge Summary Date of Service Nov 02, 2016 Dates of Hospitalization Date of Hospital Admission Oct 29, 2016 at 15:40 Date of Discharge: Nov 02, 2016 Providers: Admitting Physician: Sveta Gutierrez MD Primary Care Physician: Etelvian Gordon MD Attending Physician: Radha Corbett DO Diagnosis at Time of Discharge Diagnosis at Time of Discharge Vaginal Mass, Uncontrolled Diabetes Consultations INNOVATION ANALYST, Uriology, ID Procedures XRay, CTs & MRIs Abdominal CT IMPRESSION: 1. Thickwalled septated mass within the vagina was treated. Differential considerations include an abscess or infected Tanvi's duct cyst versus a necrotic neoplasm. Recommend correlation with clinical exam. 2. No evidence of metastatic disease in abdomen or pelvis. Dictated by: Thien Diehl M.D. on 10/29/2016 at 13:52 Approved by: Thien Diehl M.D. on 10/29/2016 at 14:01 Pelvic U/S IMPRESSION: 1. Hypoechoic solid vaginal mass in the region of the cervix. Finding is highly suspicious for neoplasm and correlation is recommended with direct visualization. If clinically indicated, further evaluation of the extent of involvement may be obtained with a pelvic MRI. Dictated by: Thien Diehl M.D. on 10/29/2016 at 13:35 Approved by: Thien Diehl M.D. on 10/29/2016 at 13:38 Abdomen U/S IMPRESSION: 1. Surgical absence of the gallbladder. No biliary ductal dilatation. 2. Increased hepatic echogenicity compatible with steatosis. Dictated by: Thien Diehl M.D. on 10/29/2016 at 13:16 Approved by: Thien Diehl M.D. on 10/29/2016 at 13:18 Brief History Ms Lutz is a [address] findings consistent with pelvic abscess. She notes her problems began about a week ago, when she experienced pain deep within her pelvis. - Pain is worse with any movement like walking. Her pain is also severe with sitting. - Lying down, as she is presently, she has pain but not severe. She states her urine is clear. - She denies purulent urine, pneumaturia, or gross hematuria. - Ucx demonstrates MUG. She has had subjective fever before admission. Hospital Course Vaginal mass, present on admission, active. -differential, abscess, infected duct, cystic or necrotic neoplasm -MRI septated cystic collection/mass within the vagina: "Thickwalled septated cystic collection or mass redemonstrated within the vagina. The findings likely represents an abscess or infected Tanvi's duct cyst. The differential includes a cystic or necrotic neoplasm." -cult grew many gram neg rods from vaginal culture -GC and clamydie cultures are negative -will continue with Flagyl/Ceftriaxone (day 2) consider ID consult if [facility] thinks this is infections, i.d. have discontinued the vancomycin -Per Dr. Mendoza's notes:"if [facility] needs a Urology consult they will need to call and request, I asked urology (Dr. Gastelum) to consult and he declined, "not urologic, call me again if not better". -Uptodate:"Cysts from Mllerian remnants, epidermal inclusions, or Tanvi's duct (wolffian remnant) usually form on the lateral or posterior vaginal gan [ 61,62]. A vaginal cyst may present in adolescence because of difficulty inserting a tampon or dyspareunia, but many are asymptomatic. Most can be treated by excision, although it may be safer to simply marsupialize deep cysts to avoid significant bleeding. --10/31/16 I have discussed case extensively with this a.m. who seems to feel that it is too risky for her to to I&D the abscess as it may have a communication with the urethra. I have discussed this with DR. Shun rose from urology, who has reviewed the scans and seen the patient on 10/31. She feels that this is a gynecological problem that should be addressed by [facility]. She also advise that we discuss case with interventional radiology. I have contacted Dr. Mason over phone, who once again reviewed the images with me and recommended patient be taken to the OR by [facility] for incision and drainage. After discussing the case with Dr. Renae, in the evening once again, I have contacted [facility] regarding a possible transfer. Dr. Hendricks INNOVATION ANALYST hospitalist has discussed the case with me, as well as Dr. Renae. Dr. Hendricks discussed case with uro internal audit manager Dr. Jose Manuel Warner, who felt that this could be watched with antibiotics. Dr. Hendricks al discussed case. with their [facility]. I got Dr. Hendricks in touch with Dr. Renae, as Dr. Renae strongly felt that the size of the mass has been increasing and it is not getting better. Dr. Hendricks is opent o possible transfer in the am if mass does not improve. Note that all images were pushed to Dr. Hendricks. -- 11/[address] Zuñiga from [facility] to see him rounding given him the number for [facility] so he can be in touch with the INNOVATION ANALYST hospitalist from [facility], he states that based on his discussion with Dr. RENAE he is still hoping to send the patient to [facility] -- 11/[address] Ross, who was it application architect for OBGYN who came ands saw the patient, recommends outpatient f/u with o/p urogyn as patient is clinically steadily improving. -- Contacted Dr. Boyd in [facility] via transfer center, since it took some time for them to call back, I Called [facility] Dr. Manuel Aguilar's office, they can see the pt within a week (one of Dr. Aguilar's colleagues as he will be off). Faxed patient records out to them. -- Patient was understanding of the plan, said she is indeed feeling much better , wanted to go home. She has been discharged, as she was walking out the door, she stopped to use the rest room and became fearful as she felt like "something was dropping out of" her vagina. She stated that she did not complete urination , in stead came back to the room and notified her nurse Avi. vAi called me, at which time I ahve visited with patient. She stated that she had no drainage or discharge but felt like the vaginal mass was moving. I have contacted Dr. Ross who kindly returned to see the patient, reassured her and that plan will still be the same. I discussed patient's need for closer f/u with patient as this seems to be the best option for patient as we were unable to transfer her out as patient is felt to be improving and clinically very stable. Patient has gone to the bathroom and urinated prior to leaving the facility and bladder scan showed no retention. Patient verbalized her understanding and left the facility. Urinary tract infection, present on admission, active. -c/o dysuria and frequency -antibiotics as above -culture negative to date -antibiotics per Dr. Allred currently patient is on Flagyl, ceftriaxone -Cefdinir and flagyl for d/c for ten days Type 2 diabetes, uncontrolled chronic, active. -Blood sugar is 338 on admit -holding patient's metformin -patient learning to use insulin -add lantus 15 daily, continue correction with med algorithm, will need more lantus --A1c 11.7 -close outpatient follow up is required --Pt declined taking/maximizing metformin, says she gets headaches and does not want to take it, she would rather be on insulin. She will be discharged home on 12U bid lantus with a close f/u with PCP. Vaginal Pain, acute POA -- Cont pain meds Exam Vital Signs (Last) Date Time Temp Pulse Resp B/P Pulse Ox O2 Delivery O2 Flow Rate FiO2 11/02/16 13:53 36.7 80 18 107/70 99 Room Air Exam General: NAD HEENT: NCAT Heart RRR, no s3/s4 Lungs: CTA, no crackles or wheezes Abd Soft, NT, normal bowel sounds Psych: No agitation Neuro: No focal deficits : small bulge is seen below the urethra Test 10/29/16 08:00 10/29/16 09:40 10/30/16 05:40 10/31/16 08:35 Urine Color Yellow (YELLOW) Urine Appearance Hazy (CLEAR,HAZY) Urine pH 6.0 (5.0-8.0) Urine Specific Black 1.045 (1.003-1.035) Urine Protein Negativemg/dL (NEG,TRACE) Urine Glucose (UA) 500mg/dL (NEGATIVE) Urine Ketones 80mg/dL (NEGATIVE) Urine Occult Blood Negative (NEGATIVE) Urine Nitrite Negative (NEGATIVE) Urine Bilirubin Negative (NEGATIVE) Urine Urobilinogen Normalmg/dL (NORMAL) Urine Leukocyte Esterase Moderate (NEGATIVE) Urine RBC 0-2/hpf (0-2) Urine WBC >50/hpf (0-5) Urine Epithelial Cells Few/hpf (NONE-MOD) Urine Crystals None seen (NONE SEEN) Urine Bacteria Few/hpf (NONE-FEW) Urine Hyaline Casts None/lpf (NONE) Urine Granular Casts None seen (NONE SEEN) Urine Waxy Casts None seen (NONE SEEN) Urine Red Blood Cell Casts None seen (NONE SEEN) Urine White Blood Cell Casts None seen (NONE SEEN) Urine Mucus None seen (None Seen) Urine Trichomonas None seen (NONE SEEN) Urine Yeast Moderate (NONE SEEN) Urinalysis Comment None Urine Culture Reflexed Indicated Chlamydia trachomatis DNA (SHEREE) Negative (Negative) Neisseria gonorrhoeae DNA (SHEREE) Negative (Negative) Erythrocyte Sedimentation Rate 65mm/hr (0-32) Hemoglobin A1c 11.6% (4.8-5.6) Lactic Acid Level 1.0mmol/L (0.4-2.0) Total Bilirubin 0.5mg/dL (0.0-1.2) Aspartate Amino Transf (AST/SGOT) 20U/L (0-50) Alanine Aminotransferase (ALT/SGPT) 28U/L (0-32) Alkaline Phosphatase 213U/L (25-150) Total Protein 8.1g/dL (6.4-8.4) Albumin 4.2g/dL (3.4-5.0) Lipase 31U/L (13-60) Procalcitonin 0.03ng/mL (0.00-0.08) Hold Roper Top Tube Received (Received) Neutrophils (%) (Auto) 75.6% (40-74) Lymphocytes (%) (Auto) 15.9% (14-46) Monocytes (%) (Auto) 7.7% (4-12) Eosinophils (%) (Auto) 0.3% (0-5) Basophils (%) (Auto) 0.2% (0-3) Red Blood Count 4.39mil/mm3 (3.90-5.20) Hemoglobin 13.2g/dL (12.0-15.6) Hematocrit 37.7% (35.0-46.0) Mean Corpuscular Volume 85.9fL (81-100) Mean Corpuscular Hemoglobin 30.1pg (27.0-35.0) Mean Corpuscular Hemoglobin Concent 35.0% (32.0-37.0) Red Cell Distribution Width 11.4% (12.3-15.4) Platelet Count 221bil/L (150-400) Sodium Level 137mEq/L (134-144) Potassium Level 4.4mEq/L (3.5-5.2) Chloride Level 99mEq/L (97-108) Carbon Dioxide Level 24mmol/L (18-29) Blood Urea Nitrogen 9mg/dL (6-20) Creatinine 0.37mg/dL (0.57-1.00) Estimat Glomerular Filtration Rate 313mL/min (>59) Glucose Level 273mg/dL (60-99) Calcium Level 8.4mg/dL (8.5-10.1) Test 10/31/16 10:15 11/01/16 04:55 11/02/16 11:25 Vancomycin Level Trough 2.3mcg/mL White Blood Count 9.6th/mm3 (3.8-10.1) Microbiology Results Urine culture negative growth to date Discharge Medications Discharge Medications Cefdinir (Cefdinir) 300 Mg Capsule 300 MG PO BID Prescribed by: RADHA CORBETT DO Insulin Glargine (Lantus U100 Solostar Insulin Pen) 100 Unit/1 Ml Insuln.pen 12 UNIT SUBQ BID Prescribed by: RADHA CORBETT DO Metronidazole (Metronidazole) 500 Mg Tablet 500 MG PO BID Prescribed by: RADHA CORBETT DO As needed Hydrocodone-Acetaminophen 5-325 mg (Hydrocodone-Acetaminophen 5-325 mg) 1 Each Tablet 1 TABLET PO Q4H PRN PRN For Moderate Pain Prescribed by: RADHA CORBETT DO Followup Plan Follow-up plan Please F/U with PCP in one week Please follow up with [facility] in one week CBC, BMP prior to f/u with PCP in 5 days Discharge Diet: Diabetic Discharge Activity: No restrictions Patient Instructions Please do not drive if you are taking narcotic pain medication as it will cause you drowsiness Please follow up with uro/internal audit manager at [facility] in one week for vaginal mass Radha Corbett DO Nov 02, 2016 14:32
[2016-11-02] MEDS: HYDROcodone-APAP 5-325 mg Tablet PO PRN (17:41)
--- NOTE | 2016-11-02 18:39 | NUR ---
Discharge note- Patient ambulated from room after signing discharge papers with . She stated that when she got into the lobby she felt like she "wet herself." She went into the bathroom and felt "like something fell out of her vagina." She came back to [facility] and I had her lie back in her room. I notified Dr Ceballos and Dr Ross who both came to see patient. Patient did discharge with family and personal belongings and discharge info.
== END 2016-11-02 17:52 | disposition home or self-care (01) | DRG 760 ==
LOC: SED 07:48 → OSC 15:40
PROVIDERS: ADMIT Hospitalist; ATTEND Family Medicine
DX: N89.9 Noninflammatory disorder of vagina, unspecified (principal); N39.0 Urinary tract infection, site not specified; E11.65 Type 2 diabetes mellitus with hyperglycemia; R10.2 Pelvic and perineal pain; Z79.84 Long term (current) use of oral hypoglycemic drugs